=== PATIENT | male | born 1990 | race Hispanic/Latino ===

== ENCOUNTER 2018-11-08 16:23 | Inpatient (IN) | payer SELFPAY ==
[~2018-11-08 16:23] MED LIST: Heparin 10,000 UNITS/ 10 ML VIAL ONE
[2018-11-08 17:03] LABS: #Basophils 0.1 thou/uL (0.0-0.2); #Eosinphils 0.9 thou/uL (0.0-0.7); #Lymphocytes 1.4 thou/uL (1.20-3.40); #Monocytes 1.6 thou/uL (0.11-0.59); #Neutrophils 14.4 thou/uL (1.40-6.50); %Basophils 0.4 % (0.0-1.0); %Lymphocytes 7.7 % (21.0-51.0); %Monocytes 8.8 % (0.0-10.0); %Neutrophils 78.1 % (42.0-75.0); Hemoglobin 13.2 g/dL (14.0-18.0); Mean Corpuscular HGB CONC 34.7 g/dL (32.0-36.0); Mean Corpuscular Hemoglobin 30.3 pg (27.0-31.0); Mean Corpuscular Volume 87.4 fL (78.0-98.0); Mean Platelet Volume 5.8 fL (7.4-10.4); Platelet Count 414 thou/uL (130-400); RBC Distribution Width 12.6 % (11.5-14.5); Red Blood Cell (RBC) Count 4.36 mill/uL (4.70-6.10); White Blood Cell (WBC) Count 18.4 thou/uL (4.8-10.8)
[2018-11-08] MEDS ORDERED: Ondansetron PF 4 MG/2 ML Vial ONE (17:11)
[2018-11-08] MEDS ORDERED: Adacel (T-DAP) 0.5 ML SYRINGE ONE (17:11)
[2018-11-08] MEDS ORDERED: Fentanyl 100 MCG/2 ML VIAL ONE ×2 (17:11→18:11)
[2018-11-08 17:25] LABS: ALT (SGPT) 153 U/L (8-55); AST (SGOT) 106 U/L (5-34); Albumin 2.9 g/dL (3.5-5.0); Alkaline Phosphatase 85 U/L (40-150); Bilirubin, Total 0.3 mg/dL (0.2-1.2); Calc. Creatinine Clearance 0 mL/min (70-130); Calcium 6.7 mg/dL (7.8-10.44); Chloride 97 mmol/L (98-107); Estimated GFR-MDRD 4; Globulin 2.4 g/dL (2.4-3.5); Glucose 101 mg/dL (70-105); Potassium 3.8 mmol/L (3.5-5.1); Protein, Total 5.3 g/dL (6.0-8.3); Sodium 125 mmol/L (136-145)
[2018-11-08 17:30] LABS: INR-International Normal Ratio 1.2; PTT 38.3 SEC (22.9-36.1); Prothrombin Time 15.2 SEC (12.0-14.7)
[2018-11-08 17:36] LABS: BUN (Urea Nitrogen) 144 mg/dL (8.9-20.6)
[2018-11-08 17:38] LABS: Carbon Dioxide Less than 8 mmol/L (22-29)
[2018-11-08] MEDS ORDERED: Sodium Bicarbonate 150 MEQ in Dextrose 5% in Water 1,000 ML IV SCH (18:15)
--- NOTE | 2018-11-08 18:21 | RAD ---
CHEST ONE VIEW: History: Chest pain Comparison: None. FINDINGS: Lungs are clear. No pneumothorax or effusion. Cardiac silhouette and mediastinal contours are within normal limits. IMPRESSION: No acute intrathoracic abnormality. POS: [facility]
[2018-11-08 18:54] LABS: Acetaminophen Less than 6.0 mcg/mL (10.0-30.0); Alcohol Less than 10 mg/dL (Less than 10); Salicylate Less than 8.0 mg/dL (15.0-30.0)
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
[2018-11-08] MEDS ORDERED: Ondansetron ODT 4 MG TAB SL PRN (21:54)
[2018-11-08] MEDS ORDERED: Ondansetron PF 4 MG/2 ML Vial IVP PRN (21:54)
[2018-11-08] MEDS ORDERED: Ondansetron ODT 4 MG TAB PO PRN (21:59)
[2018-11-08 22:05] LABS: ALT (SGPT) 134 U/L (8-55); AST (SGOT) 93 U/L (5-34); Albumin 2.7 g/dL (3.5-5.0); Alkaline Phosphatase 88 U/L (40-150); Bilirubin, Total 0.3 mg/dL (0.2-1.2); Calc. Creatinine Clearance 9 mL/min (70-130); Calcium 6.4 mg/dL (7.8-10.44); Chloride 98 mmol/L (98-107); Estimated GFR-MDRD 4; Globulin 2.2 g/dL (2.4-3.5); Glucose 122 mg/dL (70-105); Potassium 3.7 mmol/L (3.5-5.1); Protein, Total 4.9 g/dL (6.0-8.3); Sodium 124 mmol/L (136-145)
[2018-11-08 22:07] LABS: Carbon Dioxide Less than 8 mmol/L (22-29)
[2018-11-08] MEDS: Morphine 4 MG/ML VIAL SLOW IVP PRN (22:11)
[2018-11-08] MEDS: Sodium Bicarbonate 150 MEQ in Dextrose 5% in Water 1,000 ML IV SCH (22:12)
[2018-11-08 22:23] LABS: BUN (Urea Nitrogen) 142 mg/dL (8.9-20.6)
[2018-11-08 22:45] LABS: Bilirubin Negative (Negative); Blood, Urine Large (Negative); Clarity CLOUDY (Clear); Glucose, Urine (Dipstick) 100 mg/dL (Negative); Leukocyte Small (Negative); Nitrite Negative (Negative); Protein, Urine (Dipstick) 300 mg/dL (Neg-Trace); Specific Gravity, Urine 1.012 (1.002-1.036); Urobilinogen 0.2 mg/dL (0.2-1.0); pH, Urine 6.5 (5.0-9.0)
[2018-11-08 22:46] LABS: Bacteria/HPF None Seen HPF (None Seen); Hyaline Casts/LPF 0-3 HYALINE CAST LPF (0-3 Hyaline); Pathc Cast-AUWi Flag 0.14 (0-2.49); RBC/HPF GREATER THAN 50-TNTC HPF (0-3); Squamous Epithelial 0-3 HPF (0-3); WBC/HPF 21-50 HPF (0-3)
[2018-11-08 23:05] LABS: Creatinine, Urine 59.82 mg/dL (63-166)
[2018-11-09 01:11] LABS: Amphetamine Not Detected (NotDetected); Barbiturates Screen Not Detected (NotDetected); Benzodiazepine Screen Not Detected (NotDetected); Cocaine Metabolite Screen Not Detected (NotDetected); Medtox Control Line Valid? VALID (VALID); Medtox Reader # READER 1; Methadone Not Detected (NotDetected); Methamphetamine Not Detected (NotDetected); Opiate Screen Not Detected (NotDetected); Oxycodone Screen Not Detected (NotDetected); Phencyclidine (PCP) Not Detected (NotDetected); THC/Cannabinoid Screen Not Detected (NotDetected); Tricyclic Screen Not Detected (NotDetected)
[2018-11-09 01:13] LABS: Calc. Creatinine Clearance 9 mL/min (70-130); Calcium 6.1 mg/dL (7.8-10.44); Chloride 98 mmol/L (98-107); Estimated GFR-MDRD 4; Glucose 115 mg/dL (70-105); Potassium 3.6 mmol/L (3.5-5.1); Sodium 124 mmol/L (136-145)
[2018-11-09 01:16] LABS: Carbon Dioxide Less than 8 mmol/L (22-29)
[2018-11-09 01:24] LABS: BUN (Urea Nitrogen) 139 mg/dL (8.9-20.6)
[2018-11-09] MEDS ORDERED: Vancomycin HCl 1.25 GM in Sodium Chloride 0.9% 250 ML 250 ML IVPB SCH (01:45)
[2018-11-09] MEDS: Morphine 4 MG/ML VIAL SLOW IVP PRN ×2 (01:57→05:58)
[2018-11-09] MEDS: Piperacillin/Tazobactam 2.25 GM in Sodium Chloride 0.9% 100 ML IVPB SCH ×4 (01:57→20:12)
[2018-11-09] MEDS: Sodium Bicarbonate 150 MEQ in Dextrose 5% in Water 1,000 ML IV SCH ×4 (01:57→22:24)
[2018-11-09 04:55] LABS: Lactic Acid 0.6 mmol/L (0.5-2.2)
[2018-11-09 05:02] LABS: ALT (SGPT) 110 U/L (8-55); AST (SGOT) 72 U/L (5-34); Albumin 2.4 g/dL (3.5-5.0); Alkaline Phosphatase 65 U/L (40-150); Bilirubin, Total 0.3 mg/dL (0.2-1.2); Calc. Creatinine Clearance 9 mL/min (70-130); Chloride 98 mmol/L (98-107); Estimated GFR-MDRD 4; Globulin 1.8 g/dL (2.4-3.5); Glucose 104 mg/dL (70-105); Potassium 3.5 mmol/L (3.5-5.1); Protein, Total 4.2 g/dL (6.0-8.3); Sodium 125 mmol/L (136-145)
[2018-11-09 05:05] LABS: Calc. Creatinine Clearance 9 mL/min (70-130); Chloride 97 mmol/L (98-107); Estimated GFR-MDRD 4; Glucose 102 mg/dL (70-105); Potassium 3.5 mmol/L (3.5-5.1); Sodium 123 mmol/L (136-145)
[2018-11-09 05:13] LABS: Band 1 % (5-11); Hemoglobin 11.3 g/dL (14.0-18.0); Hypochromia SLIGHT = 6-15 cells (100X) (0-5/hpf); Lymphocytes 5 % (21-51); MDiff Complete? YES; Mean Corpuscular HGB CONC 35.4 g/dL (32.0-36.0); Mean Corpuscular Hemoglobin 30.7 pg (27.0-31.0); Mean Corpuscular Volume 86.5 fL (78.0-98.0); Mean Platelet Volume 5.7 fL (7.4-10.4); Monocytes 3 % (0-10); Neutrophil 90 % (42-75); Platelet Count 339 thou/uL (130-400); Platelet Morphology Comment Appears Adequate; RBC Distribution Width 12.2 % (11.5-14.5); Reactive Lymphocytes 1 % (0-10); Red Blood Cell (RBC) Count 3.68 mill/uL (4.70-6.10); White Blood Cell (WBC) Count 14.1 thou/uL (4.8-10.8)
[2018-11-09 05:14] LABS: BUN (Urea Nitrogen) 147 mg/dL (8.9-20.6); Calcium 5.9 mg/dL (7.8-10.44); Carbon Dioxide Less than 8 mmol/L (22-29)
[2018-11-09 05:15] LABS: Carbon Dioxide Less than 8 mmol/L (22-29)
[2018-11-09 05:18] LABS: BUN (Urea Nitrogen) 141 mg/dL (8.9-20.6)
[2018-11-09 05:27] LABS: CK (CPK) 16052 U/L (30-200)
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
[2018-11-09 09:41] LABS: Anion Gap 23 mmol/L (10-20); Calc. Creatinine Clearance 8 mL/min (70-130); Chloride 97 mmol/L (98-107); Estimated GFR-MDRD 4; Glucose 111 mg/dL (70-105); Potassium 3.3 mmol/L (3.5-5.1); Sodium 125 mmol/L (136-145)
[2018-11-09 09:52] LABS: BUN (Urea Nitrogen) 141 mg/dL (8.9-20.6)
[2018-11-09 09:54] LABS: Carbon Dioxide 8 mmol/L (22-29)
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
[2018-11-09] MEDS ORDERED: Heparin 10,000 UNITS/1 ML VIAL ONE (10:36)
[2018-11-09] MEDS ORDERED: Lidocaine 2% PF 5 ML VIAL ONE (10:36)
[2018-11-09] MEDS ORDERED: Sodium Chloride 0.9% 20 ML ONE ×2 (10:36→11:01)
[2018-11-09] MEDS ORDERED: Bupivacaine HCl 0.5%/Epinephrine 1:200,000/PF 30 ml Vial ONE (10:36)
--- NOTE | 2018-11-09 11:07 | HP ---
HISTORY OF PRESENT ILLNESS: Meliza Otero is a 27-year-old male patient from [place], apparently brought in complaining of myalgias, found to have acute renal failure. He has had bilateral antecubital IVs placed and by the time I saw him this morning, I asked that it would not be removed. He still has his right antecubital IV in place. I have been asked by Dr. Laughlin to see him regarding placement of hemodialysis catheter. Plan is to place a hemodialysis catheter and a central line. ALLERGIES: NONE. SOCIAL HISTORY: Tobacco none. Alcohol occasionally. Drug use, he reports drug use. He reports smoking something. MEDICATIONS: None routinely. REVIEW OF SYSTEMS: Noncontributory. PHYSICAL EXAMINATION: VITAL SIGNS: Weight 81 kg, temperature 97 degrees, respiratory rate 23, blood pressure 169/104. HEAD, EARS, EYES, NOSE, AND THROAT: Unremarkable. LUNGS: Clear to auscultation. CARDIAC: Regular rate and rhythm without murmur or gallop. ABDOMEN: Soft and nontender. EXTREMITIES: Edematous. Antecubital IV right, and his left AC is indicative of recent IV. ASSESSMENT AND PLAN: Acute renal failure, possibly superimposed on chronic, difficult to know without past labs. Plan placement of a dialysis catheter and a central line. Plan removal of his AC IV as soon as possible. Plan ultrasound vein mapping in both arms in case he needs more permanent dialysis access in the future. Avoid IV blood draws and IVs above his wrist. Job ID: [id number]
[2018-11-09 11:20] LABS: HBSAB Concentration 5.34 mIU/mL; HBSAg Index 0.22 S/CO (0-0.99); Hep B Surf AB Non-Reactive (NonReactive); Hep B Surf Ag Non-Reactive S/CO (NonReactive)
[2018-11-09] MEDS ORDERED: traMADol HCl 50 MG TAB PO PRN (11:33)
--- NOTE | 2018-11-09 12:54 | OP ---
DATE OF PROCEDURE: 11/09/2018 PREOPERATIVE DIAGNOSIS: Acute renal failure and need of urgent dialysis access with poor intravenous access, right antecubital intravenous in an acute renal failure patient. POSTOPERATIVE DIAGNOSIS: Acute renal failure and need of urgent dialysis access with poor intravenous access, right antecubital intravenous in an acute renal failure patient. PROCEDURE PERFORMED: Right internal jugular cuffed tunneled dialysis catheter, pre-curved AngioDynamics left internal jugular central line, ultrasound fluoroscopy used. ANESTHESIA: 0.5% Marcaine with epinephrine 30 mL mixed with 2 Xylocaine 10 mL. DESCRIPTION OF PROCEDURE: The patient was taken to the operating room, where in the supine position, neck and chest were prepared with ChloraPrep and draped in routine fashion. Local anesthetic mixture was infiltrated into the skin and subcutaneous tissue about the operative site. Using ultrasound guidance, the right and left internal jugular veins were cannulated with trocar catheters. J-wire was threaded. Trocar catheters removed. Skin was incised and enlarged sharply on both sides. Stab incision was made over the right chest. Using the tunneling device, pre-curved AngioDynamics cuffed-tunneled hemodialysis catheter tunneled between the two incisions, placed in the fabric cuff beneath the skin exit site. Catheter was secured with 2 interrupted sutures of 3-0 nylon. Sterile dressing applied. Small and medium-sized dilators were placed over the J-wire, and the internal jugular vein removed. Dilator and Peel-Away sheath were placed over the J-wire into the internal jugular vein, superior vena cava, and J-wire and dilator were removed. Catheter was placed through the Peel-Away sheath. Peel-Away sheath was removed. Platysma was approximated with 4-0 Monocryl, skin with subdermal 4-0 Monocryl, and Pinhook glue applied. Both ports aspirated and blood flushed with saline solution and heparinized saline solution, 1000 units of heparin per mL indicating volume of the port. Using Seldinger technique, a left IJ triple-lumen catheter was placed and secured with 3-0 nylon suture and sterile dressings applied. Each port aspirated and blood flushed with saline solution. Fluoroscopic images revealed good line placement. Job ID: [id number]
--- NOTE | 2018-11-09 13:35 | RAD ---
PORTABLE CHEST: Date: 11-09-18 Provided Clinical History: Central line placement. FINDINGS: Comparison 11-08-18. Cardiac and mediastinal silhouette is unchanged in appearance. Interval placement of right IJ dialysi s and left IJ central venous catheters with tips overlying the expected location of the right atrium. No pleural fluid or pneumothorax apparent. No definite focal consolidation. IMPRESSION: Interval placement of central line without evidence for complication. POS: [facility]
[2018-11-09 13:36] LABS: Anion Gap 23 mmol/L (10-20); Calc. Creatinine Clearance 8 mL/min (70-130); Calcium 6.2 mg/dL (7.8-10.44); Chloride 96 mmol/L (98-107); Estimated GFR-MDRD 4; Glucose 107 mg/dL (70-105); Potassium 3.4 mmol/L (3.5-5.1); Sodium 124 mmol/L (136-145)
[2018-11-09 13:47] LABS: BUN (Urea Nitrogen) 147 mg/dL (8.9-20.6)
[2018-11-09 14:04] LABS: Carbon Dioxide 8 mmol/L (22-29)
[2018-11-09] MEDS ORDERED: Heparin 10,000 UNITS/ 10 ML VIAL ONE (15:00)
[2018-11-09] MEDS ORDERED: HYDROcodone/Acetaminophen 5/325 mg Tablet PO PRN (16:46)
[2018-11-09 18:11] LABS: Anion Gap 21 mmol/L (10-20); Calc. Creatinine Clearance 10 mL/min (70-130); Carbon Dioxide 14 mmol/L (22-29); Chloride 97 mmol/L (98-107); Estimated GFR-MDRD 5; Glucose 158 mg/dL (70-105); Sodium 129 mmol/L (136-145)
[2018-11-09 18:28] LABS: BUN (Urea Nitrogen) 120 mg/dL (8.9-20.6)
--- NOTE | 2018-11-09 18:34 | ULT ---
BILATERAL UPPER EXTREMITY VEIN MAPPING: HISTORY: End-stage renal disease. Evaluation for dialysis access. FINDINGS: RIGHT CEPHALIC BASILIC PROXIMAL HUMERUS 4.5 mm 5.1 mm MID 5.8 mm 5.9 mm DISTAL 4.5 mm 7.5 mm ELBOW 6.4 mm 5.7 mm PROXIMAL FOREARM 4.7 mm 2.5 mm MID 4.5 mm 2.4 mm DISTAL 4.6 mm 2.1 mm LEFT PROXIMAL HUMERUS 4.8 mm 5.7 mm MID 4.3 mm 5.6 mm DISTAL 4.8 mm 4.3 mm ELBOW 4.7 mm 5.6 mm PROXIMAL FOREARM 3.5 mm 3.8 mm MID 3.0 mm 2.0 mm DISTAL 2.7 mm 1.5 mm RIGHT BRACHIAL ARTERY: 5.4 mm RIGHT RADIAL ARTERY: 2.5 mm RIGHT ULNAR ARTERY: 3.8 mm LEFT BRACHIAL ARTERY: 5.7 mm LEFT RADIAL ARTERY: 2.2 mm LEFT ULNAR ARTERY: 2.8 mm IMPRESSION: Vein mapping as discussed above. POS: [facility]
[2018-11-09] MEDS ORDERED: Potassium Chloride 20 MEQ TAB PO SCH (19:45)
[2018-11-09 21:40] LABS: Anion Gap 19 mmol/L (10-20); Calc. Creatinine Clearance 10 mL/min (70-130); Carbon Dioxide 14 mmol/L (22-29); Chloride 96 mmol/L (98-107); Estimated GFR-MDRD 5; Glucose 143 mg/dL (70-105)
[2018-11-09 21:53] LABS: Sodium 126 mmol/L (136-145)
[2018-11-09 21:55] LABS: BUN (Urea Nitrogen) 122 mg/dL (8.9-20.6)
[2018-11-09 21:56] LABS: Potassium 2.9 mmol/L (3.5-5.1)
[2018-11-09] MEDS: Acetaminophen 500 MG TAB PO PRN (22:33)
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
[2018-11-10] MEDS ORDERED: Vancomycin HCl 1.25 GM in Sodium Chloride 0.9% 250 ML 250 ML IVPB SCH (02:00)
[2018-11-10] MEDS ORDERED: Vancomycin HCl 500 MG in Sodium Chloride 0.9% 100 ML IVPB SCH (02:00)
[2018-11-10] MEDS ORDERED: HOLD VANCOMYCIN FOR LEVEL >20 FS SCH (02:00)
[2018-11-10] MEDS ORDERED: Vancomycin HCl 750 MG in Sodium Chloride 0.9% 250 ML 250 ML IVPB SCH (02:00)
[2018-11-10] MEDS ORDERED: Vancomycin Sliding Scale 1 EACH FS ONE (02:00)
[2018-11-10] MEDS ORDERED: Vancomycin HCl 1 GM in Premix Bag 1 BAG IVPB SCH (02:00)
[2018-11-10] MEDS: Piperacillin/Tazobactam 2.25 GM in Sodium Chloride 0.9% 100 ML IVPB SCH ×4 (02:15→19:48)
[2018-11-10] MEDS: Sodium Bicarbonate 150 MEQ in Dextrose 5% in Water 1,000 ML IV SCH ×2 (06:29→14:03)
[2018-11-10 07:10] LABS: #Eosinphils 0.1 thou/uL (0.0-0.7); #Lymphocytes 0.9 thou/uL (1.20-3.40); #Monocytes 1.2 thou/uL (0.11-0.59); %Basophils 0.3 % (0.0-1.0); %Eosinophils 1.4 % (0.0-10.0); %Lymphocytes 9.6 % (21.0-51.0); %Monocytes 13.2 % (0.0-10.0); %Neutrophils 75.5 % (42.0-75.0); Hemoglobin 9.6 g/dL (14.0-18.0); Mean Corpuscular HGB CONC 35.3 g/dL (32.0-36.0); Mean Corpuscular Hemoglobin 30.9 pg (27.0-31.0); Mean Corpuscular Volume 87.5 fL (78.0-98.0); Mean Platelet Volume 5.9 fL (7.4-10.4); Platelet Count 357 thou/uL (130-400); RBC Distribution Width 12.2 % (11.5-14.5); Red Blood Cell (RBC) Count 3.12 mill/uL (4.70-6.10); White Blood Cell (WBC) Count 9.3 thou/uL (4.8-10.8)
[2018-11-10 07:51] LABS: ALT (SGPT) 82 U/L (8-55); AST (SGOT) 49 U/L (5-34); Albumin 2.3 g/dL (3.5-5.0); Alkaline Phosphatase 58 U/L (40-150); Anion Gap 20 mmol/L (10-20); Bilirubin, Total 0.3 mg/dL (0.2-1.2); Calc. Creatinine Clearance 10 mL/min (70-130); Carbon Dioxide 16 mmol/L (22-29); Chloride 95 mmol/L (98-107); Estimated GFR-MDRD 5; Globulin 1.8 g/dL (2.4-3.5); Glucose 118 mg/dL (70-105); Protein, Total 4.1 g/dL (6.0-8.3); Sodium 128 mmol/L (136-145)
[2018-11-10 08:02] LABS: BUN (Urea Nitrogen) 117 mg/dL (8.9-20.6)
[2018-11-10 09:16] LABS: RBC/HPF 21-50 HPF (0-3)
[2018-11-10 09:17] LABS: Bacteria/HPF None Seen HPF (None Seen); Hyaline Casts/LPF NONE SEEN LPF (0-3 Hyaline); Squamous Epithelial 0-3 HPF (0-3)
[2018-11-10] MEDS: traMADol HCl 50 MG TAB PO PRN ×2 (09:48→18:34)
[2018-11-10 10:16] LABS: HIV (1/2) Antibody/Antigen Non-Reactive (NonReactive); HIV 1/2 INDEX 0.05 S/CO (<1.00)
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
[2018-11-10 11:27] LABS: Phosphorus 6.1 mg/dL (2.3-4.7)
[2018-11-10 11:51] LABS: HBSAg Index 0.23 S/CO (0-0.99); Hep B Surf Ag Non-Reactive S/CO (NonReactive); Hep C IgG Ab Non-Reactive (NonReactive); Hep C Index 0.01 S/CO (0-0.79)
--- NOTE | 2018-11-10 13:07 | PDOC.FM ---
- Subjective Subjective: Complaining of a headache this morning, nausea, and a sore throat. - Objective MAR Reviewed: Yes Vital Signs & Weight: Vital Signs (12 hours) Temp Pulse Ox 11/10/18 11:11 98.1 F 11/10/18 08:00 100 11/10/18 07:10 98.2 F 11/10/18 04:00 98.4 F Weight Admit Weight 81.284 kg Weight 81.284 kg Most Recent Monitor Data Heart Rate from ECG 94 NIBP 142/97 NIBP BP-Mean 112 Respiration from ECG 17 SpO2 97 I&O: 11/09/18 11/10/18 11/11/18 06:59 06:59 06:59 Intake Total 1762 2711 Output Total 150 1610 Balance 1612 1101 Result Diagrams: 11/10/18 04:30 11/10/18 04:30 Phys Exam - Physical Examination Constitutional: NAD Respiratory: no wheezing, no rales, clear to auscultation bilateral tachycardic Gastrointestinal: soft, non-tender, no distention Musculoskeletal: no edema, pulses present Neurological: non-focal, normal sensation Psychiatric: normal affect, A&O x 3 Skin: no rash Dx/Plan (1) Acute renal failure (ARF) Status: Acute (2) AMAYA (acute kidney injury) Code(s): N17.9 - ACUTE KIDNEY FAILURE, UNSPECIFIED Status: Acute (3) Metabolic acidosis, increased anion gap Code(s): E87.2 - ACIDOSIS Status: Acute (4) Hyponatremia Code(s): E87.1 - HYPO-OSMOLALITY AND HYPONATREMIA Status: Acute (5) Rhabdomyolysis Code(s): M62.82 - RHABDOMYOLYSIS Status: Acute (6) Transaminitis Code(s): R74.0 - NONSPEC ELEV OF LEVELS OF TRANSAMNS & LACTIC ACID DEHYDRGNSE Status: Acute (7) Elevated TSH Code(s): R79.89 - OTHER SPECIFIED ABNORMAL FINDINGS OF BLOOD CHEMISTRY Status : Acute (8) Elevated brain natriuretic peptide (BNP) level Code(s): R79.89 - OTHER SPECIFIED ABNORMAL FINDINGS OF BLOOD CHEMISTRY Status : Acute (9) Elevated lipase Code(s): R74.8 - ABNORMAL LEVELS OF OTHER SERUM ENZYMES Status: Acute - Plan Plan: ARF/AMAYA stage 3 - GFR 5 - Bun/Cr on admission ~9.5 - FeNa 15% - [id number] 150 ml/hr - daily CMP, will check mg and phosph as well - Nephrology consulted, appreciate recs, planning for dialysis again today - avoid nephrotoxic meds - Considering intrinsic pathology such as ATN, glomerularnephritis, AIN vs prerenal etiology -->Hep B, C, HIV, P-ANCA, KALPANA pending - Considering drug induced nephropathy as pt reports sniffing paint thinner ( tenaco) daily; spoke with poison control who stated that inhaled substances such as this are not well absorbed and likely wouldn't be causing his renal failure, however he is at risk for ventricular tachycardia - proximal right ureter: moderately obstructing stone, urology consulted. Plan for NPO tonight with stent placement tomorrow followed by ureteroscopy and lithotrypsy, although does not seem to be the leading cause of patient's acute renal failure. -Urology desires to continue abx-vanc, [place] [address] [place], downtrended to 16,052--> 9764 - diffuse muscle pain on admission - continue IVF resuscitation AG Metabolic acidosis - Uremia/Rhabdo - AG 20 - see treatment as above Transaminitis - Aware, likely 2/2 poor perfusion/reactive - monitor elevated TSH - free T4 low normal hyponatremia - likely 2/2 acute renal failure/AMAYA Elevated BNP - 631 on admission, 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 - monitor fluid status closely - avoid lasix 2/2 above - Echo showed 55-60% EF with mild MR, mild TR elevated lipase - likely 2/2 to poor perfusion/reactive - no indication of pancreatitis MRSE- -1/2 blood cx elevated PT/PTT - platelets wnl, monitor for DIC - no anticoag ppx for DVT code: full ppx: [facility] dispo: pt admitted to IM, dialysis today, aggressive IVF resuscitation Addendum - Attending - Attending Attestation Date/Time: 11/10/18 5375 I personally evaluated the patient and discussed the management with Dr. Ramírez. I agree with and repeated the History, Examination, Assessment and Plan documented above with any addition or exceptions noted below. Appreciate uro/nephrology recs. Dialysis again today.
[2018-11-10 13:33] LABS: Magnesium 1.6 mg/dL (1.6-2.6); Phosphorus 6.2 mg/dL (2.3-4.7)
[2018-11-10] MEDS: Ondansetron PF 4 MG/2 ML Vial IVP PRN (19:41)
[2018-11-10] MEDS: chlorproMAZINE HCl 50 MG/2 ML AMP IM PRN (19:43)
[2018-11-11] MEDS: Sodium Bicarbonate 150 MEQ in Dextrose 5% in Water 1,000 ML IV SCH ×4 (02:06→21:19)
[2018-11-11] MEDS: Piperacillin/Tazobactam 2.25 GM in Sodium Chloride 0.9% 100 ML IVPB SCH ×4 (02:07→19:44)
[2018-11-11 05:43] LABS: #Eosinphils 0.2 thou/uL (0.0-0.7); #Lymphocytes 1.2 thou/uL (1.20-3.40); #Neutrophils 6.8 thou/uL (1.40-6.50); %Basophils 0.1 % (0.0-1.0); %Eosinophils 1.9 % (0.0-10.0); %Lymphocytes 12.8 % (21.0-51.0); %Monocytes 11.1 % (0.0-10.0); %Neutrophils 74.1 % (42.0-75.0); Hemoglobin 9.6 g/dL (14.0-18.0); Mean Corpuscular HGB CONC 34.8 g/dL (32.0-36.0); Mean Corpuscular Hemoglobin 30.2 pg (27.0-31.0); Mean Corpuscular Volume 86.7 fL (78.0-98.0); Mean Platelet Volume 5.4 fL (7.4-10.4); Platelet Count 394 thou/uL (130-400); Red Blood Cell (RBC) Count 3.18 mill/uL (4.70-6.10); White Blood Cell (WBC) Count 9.1 thou/uL (4.8-10.8)
--- NOTE | 2018-11-11 05:50 | PDOC.FM ---
- Subjective Subjective: No acute events overnight. A&O x 3 this am. Conversing in mauritian this morning. Denies nausea. Endorses diffuse abdominal tenderness. - Objective MAR Reviewed: Yes Vital Signs & Weight: Vital Signs (12 hours) Temp Pulse Ox 11/11/18 04:00 99.0 F 11/11/18 00:00 99.2 F 11/10/18 20:39 100 11/10/18 20:00 98.4 F Weight Admit Weight 81.284 kg Weight 81.284 kg Most Recent Monitor Data Heart Rate from ECG 108 NIBP 138/76 NIBP BP-Mean 96 Respiration from ECG 8 SpO2 94 I&O: 11/09/18 11/10/18 11/11/18 06:59 06:59 06:59 Intake Total 1762 2711 2000 Output Total 150 1610 1750 Balance 1612 1101 250 Result Diagrams: 11/11/18 05:05 11/11/18 05:05 Phys Exam - Physical Examination Constitutional: NAD HEENT: PERRLA, moist MMs Respiratory: no wheezing, no rales, clear to auscultation bilateral Cardiovascular: no significant murmur mild tachycardia Gastrointestinal: soft, non-tender, no distention Musculoskeletal: pulses present scrotal edema Neurological: non-focal Psychiatric: normal affect, A&O x 3 Skin: no rash Dx/Plan (1) Acute renal failure (ARF) Status: Acute (2) AMAYA (acute kidney injury) Code(s): N17.9 - ACUTE KIDNEY FAILURE, UNSPECIFIED Status: Acute (3) Metabolic acidosis, increased anion gap Code(s): E87.2 - ACIDOSIS Status: Acute (4) Hyponatremia Code(s): E87.1 - HYPO-OSMOLALITY AND HYPONATREMIA Status: Acute (5) Rhabdomyolysis Code(s): M62.82 - RHABDOMYOLYSIS Status: Acute (6) Transaminitis Code(s): R74.0 - NONSPEC ELEV OF LEVELS OF TRANSAMNS & LACTIC ACID DEHYDRGNSE Status: Acute (7) Elevated TSH Code(s): R79.89 - OTHER SPECIFIED ABNORMAL FINDINGS OF BLOOD CHEMISTRY Status : Acute (8) Elevated brain natriuretic peptide (BNP) level Code(s): R79.89 - OTHER SPECIFIED ABNORMAL FINDINGS OF BLOOD CHEMISTRY Status : Acute (9) Elevated lipase Code(s): R74.8 - ABNORMAL LEVELS OF OTHER SERUM ENZYMES Status: Acute - Plan Plan: ARF/AMAYA stage 3 - GFR 5 - Bun/Cr on admission ~9.5 - FeNa 15% - [id number] 150 ml/hr - daily dialysis - daily CMP - Mg and phosph wnl - Nephrology consulted, appreciate recs - Avoid nephrotoxic meds - Considering intrinsic pathology such as ATN, glomerularnephritis, AIN -->Hep B, C, HIV negative -->, P-ANCA, KALPANA pending - Considering drug induced nephropathy as pt reports sniffing paint thinner ( tenaco) daily; spoke with poison control who stated that inhaled substances such as this are not well absorbed and likely wouldn't be causing his renal failure, however he is at risk for ventricular tachycardia - proximal right ureter: moderately obstructing stone, urology consulted. Plan stent placement followed by ureteroscopy and lithotrypsy, although does not seem to be the leading cause of patient's acute renal failure. 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 Ramírez. I agree with and repeated the History, Examination, Assessment and Plan documented above with any addition or exceptions noted below. Patient s/p surgery and doing well. No pain currently. Replete and recheck Baudilio Continue dialysis. PTH supports AMAYA on CKD. Rhabdo improving.
[2018-11-11 06:05] LABS: ALT (SGPT) 58 U/L (8-55); AST (SGOT) 36 U/L (5-34); Albumin 2.2 g/dL (3.5-5.0); Alkaline Phosphatase 44 U/L (40-150); Anion Gap 17 mmol/L (10-20); BUN (Urea Nitrogen) 84 mg/dL (8.9-20.6); Bilirubin, Total 0.3 mg/dL (0.2-1.2); Calc. Creatinine Clearance 13 mL/min (70-130); Calcium 6.2 mg/dL (7.8-10.44); Carbon Dioxide 26 mmol/L (22-29); Chloride 93 mmol/L (98-107); Estimated GFR-MDRD 6; Globulin 1.7 g/dL (2.4-3.5); Glucose 111 mg/dL (70-105); Protein, Total 3.9 g/dL (6.0-8.3); Sodium 133 mmol/L (136-145)
[2018-11-11 06:08] LABS: Potassium 2.8 mmol/L (3.5-5.1)
[2018-11-11] MEDS ORDERED: Potassium Chloride 40 MEQ in Premix Bag 1 BAG IVPB SCH (06:15)
[2018-11-11 06:20] LABS: CK (CPK) 4991 U/L (30-200)
[2018-11-11] MEDS: Acetaminophen 500 MG TAB PO PRN ×2 (06:29→19:44)
[2018-11-11 06:30] LABS: Vancomycin, Random 11.2 ug/mL (See Comment)
[2018-11-11] MEDS ORDERED: Iothalamate Meglumine 60% 50 ML VIAL FS ONE (09:25)
[2018-11-11] MEDS ORDERED: Lidocaine 2% Jelly 5 ML TUBE ONE (09:59)
[2018-11-11] MEDS ORDERED: traMADol HCl 50 MG TAB PO PRN (10:15)
--- NOTE | 2018-11-11 10:27 | RAD ---
LEFT RETROGRADE UROGRAM: DATE: 11/11/2018. HISTORY: Left hydronephrosis and obstructing left ureteral calculus noted on recent CT exam. FINDINGS: Single provided fluoroscopic image demonstrates surgical instruments overlying the urinary bladder wi th a right ureteral stent in place with proximal portion overlying the superior pole left renal colle cting system with distal portion overlying the urinary bladder. There is evidence of mild left hydro nephrosis. Calculus within the proximal left ureter near the left UPJ seen on the CT scan on 11/08/19 19 is not well visualized on this exam. Correlation with intraoperative findings is recommended POS: SERGIO
[2018-11-11] MEDS: Potassium Chloride 20 MEQ in Premix Bag 1 BAG IVPB SCH ×2 (10:58→11:59)
[2018-11-11] MEDS ORDERED: Heparin 1,000 UNITS/ML VIAL ONE (11:11)
[2018-11-11] MEDS ORDERED: Potassium Chloride 20 MEQ in Premix Bag 1 BAG IVPB SCH (12:00)
--- NOTE | 2018-11-11 12:32 | OP ---
DATE OF PROCEDURE: 11/11/2018 PREOPERATIVE DIAGNOSES: 1. A 27-year-old male with acute renal failure. 2. Left proximal ureteral stone measuring 0.9 x 0.5 x 1 cm at the level of L3, left lower pole 4-mm nonobstructing stone. 3. Right kidney without evidence of hydronephrosis or renal ureteral calculi. POSTOPERATIVE DIAGNOSES: 1. A 27-year-old male with acute renal failure. 2. Left proximal ureteral stone measuring 0.9 x 0.5 x 1 cm at the level of L3, left lower pole 4-mm nonobstructing stone. 3. Right kidney without evidence of hydronephrosis or renal ureteral calculi. PROCEDURES: Cystoscopy, left retrograde, a 6 x 26 double-J ureteral stent. ANESTHESIA: TIVA. COMPLICATIONS: None. DISPOSITION: To recovery room in guarded condition. INDICATIONS FOR PROCEDURE AND HISTORY: Mr. Otero is a 27-year-old male admitted for acute renal failure. He has received dialysis. CT of the abdomen, pelvis, and chest without contrast was obtained on admission. This demonstrated a large left proximal ureteral stone with left hydronephrosis. Right kidney unremarkable. The patient/family were consulted regarding options of ureteral stent versus observation. They have been fully informed regarding multifactorial etiology of his acute renal failure and desired to proceed with ureteral stent. I did discuss with them regarding options of ureteroscopy, laser lithotripsy as his UA demonstrates no bacteria. However, given frail nature, uremic state, anesthesia did have concerns regarding general anesthesia. Therefore, we elected just to put a stent in and the patient has been cleared by Anesthesia to proceed with TIVA anesthesia. Family informed. We also discussed options of observation, which they desired trial of ureteral stents. Risks and complications including, but not limited to, bleeding, pain, infection, injury to adjacent organs, urosepsis, persistent renal failure, and injury to adjacent organs were reviewed. The patient and family were fully informed regarding implications of foreign body, i.e., ureteral stent requiring staged intervention. Risks of noncompliance with indwelling ureteral stent resulting in persistent renal failure, sepsis, incrustation further stone nidus was reviewed. They desired to proceed without reservation. DESCRIPTION OF PROCEDURE: After an informed consent was signed, the patient was taken to the operating room, placed in a dorsal lithotomy position with the genital area prepped and draped in the usual surgical sterile fashion. The patient has been receiving broad-spectrum antibiotics in-house with vancomycin and Zosyn. The patient was taken to the operating room. Bilateral JORGE hose and SCDs were in place and TIVA anesthesia was administered. Viscous lidocaine was placed per urethra. A 21-American cystoscope was utilized for cystoscopy, which demonstrated normal anterior and posterior urethra. The UOs are in normal orthotopic position. A left retrograde pyelogram was performed with a 5-American open-ended catheter with 1:1 diluted contrast demonstrating a subtle filling defect in the proximal ureter with proximal hydronephrosis. A 0.35 Sensor wire was able to be passed without difficulty and a 6 x 26 double-J ureteral stent was passed without significant issues. A 16-American Shea catheter was replaced to gravity demonstrating red- tinged urine. The patient was transported to the recovery room in stable condition and we will continue medical optimization. If the patient has improvement of his clinical parameters, discussed with the patient regarding possible ureteroscopy at a later date on this admission versus as an outpatient. Job ID: [id number] [facility]
[2018-11-11] MEDS ORDERED: PROPOFOL 200 MG/20 ML VIAL ONE (13:31)
[2018-11-11 14:00] LABS: Anion Gap 17 mmol/L (10-20); BUN (Urea Nitrogen) 83 mg/dL (8.9-20.6); Calc. Creatinine Clearance 13 mL/min (70-130); Calcium 6.3 mg/dL (7.8-10.44); Carbon Dioxide 26 mmol/L (22-29); Chloride 91 mmol/L (98-107); Estimated GFR-MDRD 6; Glucose 192 mg/dL (70-105); Sodium 131 mmol/L (136-145)
[2018-11-11 14:04] LABS: Potassium 2.9 mmol/L (3.5-5.1)
--- NOTE | 2018-11-11 18:14 | PRG ---
DATE OF SERVICE: 11/11/2018 SUBJECTIVE: Mr. Otero is a 27-year-old male, was admitted for acute kidney injury. The exact etiology of his renal dysfunction remains unclear. He also was found to have left renal obstruction. He underwent cystoscopy and ureteral stent placement. He also underwent hemodialysis today. The patient is improving with regard to his mentation. No complaints of chest pain or shortness of breath. OBJECTIVE: VITAL SIGNS: Blood pressure is 149/97, heart rate 102, respiratory rate 13, pulse ox 97%. GENERAL: Noted to be awake, alert, comfortable, not in distress. SKIN: Adequate turgor. HEENT: He has slightly pale conjunctivae. Anicteric sclerae. No neck mass. No carotid bruits. No JVD. CHEST: No deformities. LUNGS: Clear breath sounds. HEART: Normal sinus rhythm. No murmur. No gallops. No rubs. ABDOMEN: Globular, soft, nontender. No masses. EXTREMITIES: No deformities. MEDICATIONS: Medications of November 11, 2018, were reviewed. LABORATORY DATA: Laboratories of November 11, 2018: Sodium 131, potassium 2.9, chloride 91, carbon dioxide 26, BUN 83, creatinine 9.86, calcium 6.3. PTH is 222. Hepatitis B and C are nonreactive. HIV is negative. KALPANA and ANCA are pending. ASSESSMENT AND PLAN: 1. Acute kidney injury. Unclear etiology. The possibility of underlying chronic GN remains with this patient. Another close differential is myoglobinuric ATN from possible rhabdomyolysis. For the moment, continue current hemodialysis regimen. We will schedule him for another dialytic intervention. Clinically, the patient is much improved. He is less uremic. He is mentating and talking and more alert today. 2. Left hydronephrosis - Urology is following, status post ureteral stent placement. 3. Hypokalemia, p.r.n. potassium replacement. Overall agree with current management. Job ID: [id number]
[2018-11-11 20:15] LABS: Potassium 3.1 mmol/L (3.5-5.1)
[2018-11-11] MEDS ORDERED: Potassium Chloride 20 MEQ TAB PO SCH (23:45)
[2018-11-12] MEDS: Piperacillin/Tazobactam 2.25 GM in Sodium Chloride 0.9% 100 ML IVPB SCH ×3 (03:03→20:21)
[2018-11-12 04:26] LABS: #Eosinphils 0.1 thou/uL (0.0-0.7); #Lymphocytes 1.3 thou/uL (1.20-3.40); #Monocytes 1.1 thou/uL (0.11-0.59); #Neutrophils 7.3 thou/uL (1.40-6.50); %Basophils 0.4 % (0.0-1.0); %Eosinophils 1.2 % (0.0-10.0); %Lymphocytes 12.7 % (21.0-51.0); %Monocytes 11.3 % (0.0-10.0); %Neutrophils 74.4 % (42.0-75.0); Hemoglobin 9.6 g/dL (14.0-18.0); Mean Corpuscular HGB CONC 34.6 g/dL (32.0-36.0); Mean Corpuscular Hemoglobin 30.7 pg (27.0-31.0); Mean Corpuscular Volume 88.9 fL (78.0-98.0); Mean Platelet Volume 5.4 fL (7.4-10.4); Platelet Count 377 thou/uL (130-400); RBC Distribution Width 12.3 % (11.5-14.5); Red Blood Cell (RBC) Count 3.13 mill/uL (4.70-6.10); White Blood Cell (WBC) Count 9.8 thou/uL (4.8-10.8)
[2018-11-12 04:44] LABS: ALT (SGPT) 60 U/L (8-55); AST (SGOT) 47 U/L (5-34); Albumin 2.3 g/dL (3.5-5.0); Alkaline Phosphatase 77 U/L (40-150); Anion Gap 16 mmol/L (10-20); BUN (Urea Nitrogen) 52 mg/dL (8.9-20.6); Bilirubin, Total 0.2 mg/dL (0.2-1.2); CK (CPK) 3430 U/L (30-200); Calc. Creatinine Clearance 18 mL/min (70-130); Calcium 6.4 mg/dL (7.8-10.44); Carbon Dioxide 29 mmol/L (22-29); Chloride 97 mmol/L (98-107); Estimated GFR-MDRD 9; Globulin 1.9 g/dL (2.4-3.5); Glucose 129 mg/dL (70-105); Potassium 3.1 mmol/L (3.5-5.1); Protein, Total 4.2 g/dL (6.0-8.3); Sodium 139 mmol/L (136-145)
[2018-11-12] MEDS: Sodium Bicarbonate 150 MEQ in Dextrose 5% in Water 1,000 ML IV SCH ×3 (05:40→17:20)
[2018-11-12] MEDS ORDERED: Potassium Chloride 20 MEQ in Premix Bag 1 BAG IVPB SCH ×4 (06:45→09:00)
--- NOTE | 2018-11-12 06:46 | PDOC.FM ---
- Subjective Subjective: No acute events overnight. Complained of a headache and nausea this morning. - Objective MAR Reviewed: Yes Vital Signs & Weight: Vital Signs (12 hours) Temp 11/12/18 04:00 99.2 F 11/12/18 00:30 99.4 F 11/11/18 19:44 99.2 F Weight Admit Weight 81.284 kg Weight 81.284 kg Most Recent Monitor Data Heart Rate from ECG 92 NIBP 149/103 NIBP BP-Mean 118 Respiration from ECG 11 SpO2 97 I&O: 11/10/18 11/11/18 11/12/18 06:59 06:59 06:59 Intake Total 2711 3100 4580 Output Total 1610 2650 4400 Balance 1101 450 180 Result Diagrams: 11/12/18 04:15 11/12/18 04:15 Phys Exam - Physical Examination Constitutional: NAD Respiratory: no wheezing, no rales, clear to auscultation bilateral Cardiovascular: RRR, no significant murmur Gastrointestinal: soft mild distention, tender in the midepigasric region and ruq region, hypoacti bowel sounds Neurological: non-focal Psychiatric: normal affect, A&O x 3 Skin: no rash, cap refill <2 seconds Dx/Plan (1) Acute renal failure (ARF) Status: Acute (2) AMAYA (acute kidney injury) Code(s): N17.9 - ACUTE KIDNEY FAILURE, UNSPECIFIED Status: Acute (3) Metabolic acidosis, increased anion gap Code(s): E87.2 - ACIDOSIS Status: Acute (4) Hyponatremia Code(s): E87.1 - HYPO-OSMOLALITY AND HYPONATREMIA Status: Acute (5) Rhabdomyolysis Code(s): M62.82 - RHABDOMYOLYSIS Status: Acute (6) Transaminitis Code(s): R74.0 - NONSPEC ELEV OF LEVELS OF TRANSAMNS & LACTIC ACID DEHYDRGNSE Status: Acute (7) Elevated TSH Code(s): R79.89 - OTHER SPECIFIED ABNORMAL FINDINGS OF BLOOD CHEMISTRY Status : Acute (8) Elevated brain natriuretic peptide (BNP) level Code(s): R79.89 - OTHER SPECIFIED ABNORMAL FINDINGS OF BLOOD CHEMISTRY Status : Acute (9) Elevated lipase Code(s): R74.8 - ABNORMAL LEVELS OF OTHER SERUM ENZYMES Status: Acute - Plan Plan: 27 yo gentleman who presented with diffuse pain admitted for AMAYA/ARF, rhabdo, hyponatremia, and transaminitis. Hosp day: 4, ICU day: 4 AMAYA on CKD -DDX: GN vs ATN from rhabdo -->Hep B, C, HIV negative -->, P-ANCA, KALPANA pending - GFR 9 - Bun/Cr on admission ~9.5 - FeNa on admission 15% - Continue [id number] 150 ml/hr - daily dialysis - daily CMP with mag and phosph - Nephrology consulted, appreciate recs - Avoid nephrotoxic meds , dose abx accordingly - Considered drug induced nephropathy as pt reports sniffing paint thinner ( tenaco) daily; spoke with poison control who stated that inhaled substances such as this are not well absorbed and likely wouldn't be causing his renal failure, however he is at risk for ventricular tachycardia Abdominal distention with nausea- -Pt is on norco, tram for pain -ordered kub -will also try a GI cocktail Left ureteral stone- -moderately obstructing -Urology on board, appreciate recommendations -pt s/p stent placed in left ureter -continue vanc (11/09) and zosyn (11/09) [place] [address] [place], downtrended to 16,052--> 9764-->33972-->3430 - diffuse muscle pain on admission - continue IVF resuscitation Transaminitis - Aware, slightly worse from yesterday - AST: ALT 47, 60 - allk phosph wnl, t bili wnl elevated TSH -free T4 low normal -repeat TSH outpatient 6 weeks Elevated BNP - 631 on admission, 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 - monitor fluid status closely - avoid lasix 2/2 above - Echo showed 55-60% EF with mild MR, mild TR elevated lipase - likely 2/2 to poor perfusion/reactive - no indication of pancreatitis MRSE- -1/2 blood cx elevated PT/PTT - platelets wnl, monitor for DIC - no anticoag ppx for DVT AG Metabolic acidosis, resolved hyponatremia, resolved lines: left IJ dialysis cath, right IJ CVC both placed 11/09 code: full ppx: mech, consider heparin dispo: pt admitted to [facility], dialysis today, aggressive IVF resuscitation Addendum - Attending - Attending Attestation Date/Time: 11/12/18 1055 I personally evaluated the patient and discussed the management with Dr. Ramírez. I agree with and repeated the History, Examination, Assessment and Plan documented above with any addition or exceptions noted below.
--- NOTE | 2018-11-12 08:35 | PRG ---
DATE OF SERVICE: 11/12/2018 SUBJECTIVE: The patient resting comfortably, family at bedside. OBJECTIVE: VITAL SIGNS: Stable. He is afebrile. I's and O's 1000 of urine output, red tinged hematuria. ABDOMEN: Soft, nontender, nondistended. : Shea catheter adequately secured, stable hydrocele, left greater than right. PERTINENT LABORATORY DATA: White count 9, hemoglobin 9.6, platelets 377. BUN 52, creatinine 7.19. CPK on admission 27,493, this morning it is 3430. Urine culture preliminary negative. Hepatitis HIV panel was negative. IMPRESSION AND PLAN: Mr. Otero is a 27-year-old male, admitted for acute renal failure on hemodialysis. 1. History of polysubstance abuse. 2. History of left hydronephrosis with 1 cm proximal ureteral stone, postop day #1, status post cysto, left retrograde stent. Continue medical management and optimization. will follow, monitor for renal function recovery. Do not remove Shea unless is okay with Job ID: [id number] MTDD
[2018-11-12] MEDS ORDERED: Lidocaine 2% Viscous Solution 10 ML, Aluminum & Magnesium Hydroxide 30 ML SSW SCH (08:45)
[2018-11-12] MEDS ORDERED: traMADol HCl 50 MG TAB PO SCH (08:45)
--- NOTE | 2018-11-12 09:13 | RAD ---
SUPINE PORTABLE AP ABDOMINAL RADIOGRAPH: Date: 11-12-18 History: Abdominal distension, epigastric pain. Right upper quadrant pain. Comparison: IVP, 11-11-18 FINDINGS: Visualized lung bases are clear. Left ureteral stent is again noted in place and unchanged in positio n. Previously seen contrast within the left renal collecting system is not identified. Bowel gas joann jose elias is nonspecific. No suspicious calcifications are seen. Osseous structures are intact. IMPRESSION: 1. Left ureteral stent in place. 2. Nonspecific bowel gas pattern. POS: SERGIO
[2018-11-12] MEDS ORDERED: Heparin 1,000 UNITS/ML VIAL ONE (11:11)
[2018-11-12] MEDS: Acetaminophen 500 MG TAB PO PRN ×2 (12:53→20:25)
[2018-11-12 16:03] LABS: Potassium 3.5 mmol/L (3.5-5.1)
[2018-11-12 17:10] LABS: Cytoplasmic (C-ANCA) <1:20 titer (Neg:<1:20); Myeloperoxidase AutoAbs <9.0 U/mL (0.0-9.0); Perinuclear (P-ANCA) <1:20 titer (Neg:<1:20); Proteinase-3 AutoAbs Less than 3.5 U/mL (0.0-3.5)
[2018-11-12] MEDS: traMADol HCl 50 MG TAB PO PRN (23:56)
[2018-11-13] MEDS: Sodium Bicarbonate 150 MEQ in Dextrose 5% in Water 1,000 ML IV SCH ×3 (03:13→13:54)
[2018-11-13] MEDS: Piperacillin/Tazobactam 2.25 GM in Sodium Chloride 0.9% 100 ML IVPB SCH ×3 (03:32→18:19)
[2018-11-13 05:54] LABS: #Eosinphils 0.2 thou/uL (0.0-0.7); #Lymphocytes 1.1 thou/uL (1.20-3.40); #Neutrophils 8.4 thou/uL (1.40-6.50); %Basophils 0.4 % (0.0-1.0); %Eosinophils 1.8 % (0.0-10.0); %Neutrophils 78.8 % (42.0-75.0); Hemoglobin 9.8 g/dL (14.0-18.0); Mean Corpuscular HGB CONC 33.2 g/dL (32.0-36.0); Mean Corpuscular Hemoglobin 30.5 pg (27.0-31.0); Mean Corpuscular Volume 91.7 fL (78.0-98.0); Mean Platelet Volume 5.7 fL (7.4-10.4); Platelet Count 383 thou/uL (130-400); RBC Distribution Width 12.6 % (11.5-14.5); Red Blood Cell (RBC) Count 3.21 mill/uL (4.70-6.10); White Blood Cell (WBC) Count 10.6 thou/uL (4.8-10.8)
[2018-11-13 06:16] LABS: ALT (SGPT) 67 U/L (8-55); AST (SGOT) 60 U/L (5-34); Albumin 2.6 g/dL (3.5-5.0); Alkaline Phosphatase 61 U/L (40-150); Anion Gap 15 mmol/L (10-20); BUN (Urea Nitrogen) 28 mg/dL (8.9-20.6); Bilirubin, Total 0.2 mg/dL (0.2-1.2); CK (CPK) 3014 U/L (30-200); Calc. Creatinine Clearance 26 mL/min (70-130); Carbon Dioxide 32 mmol/L (22-29); Chloride 98 mmol/L (98-107); Estimated GFR-MDRD 14; Glucose 108 mg/dL (70-105); Potassium 3.4 mmol/L (3.5-5.1); Protein, Total 4.6 g/dL (6.0-8.3); Sodium 142 mmol/L (136-145)
[2018-11-13] MEDS ORDERED: Potassium Chloride 20 MEQ in Premix Bag 1 BAG IVPB SCH ×2 (06:45→07:00)
--- NOTE | 2018-11-13 06:53 | PDOC.FM ---
- Subjective Subjective: Complains of persistent nausea and diffuse abdominal tenderness. - Objective Vital Signs & Weight: Vital Signs (12 hours) Temp Pulse Resp BP BP Pulse Ox 11/13/18 04:00 98 F 88 12 159/98 H 93 L 11/12/18 21:50 98.7 F 82 16 156/98 H 95 11/12/18 19:13 98.8 F Weight Admit Weight 81.284 kg Weight 84.459 kg Most Recent Monitor Data Heart Rate from ECG 87 NIBP 157/99 NIBP BP-Mean 118 Respiration from ECG 16 SpO2 95 I&O: 11/11/18 11/12/18 11/13/18 06:59 06:59 06:59 Intake Total 3100 4580 4532 Output Total 2650 4400 4125 Balance 450 180 407 Result Diagrams: 11/13/18 04:52 11/13/18 04:52 Phys Exam - Physical Examination Constitutional: NAD HEENT: PERRLA, moist MMs Respiratory: no wheezing, no rales, clear to auscultation bilateral Cardiovascular: RRR, no significant murmur Gastrointestinal: soft, non-tender, no distention, positive bowel sounds Musculoskeletal: no edema, pulses present Neurological: non-focal, normal sensation Psychiatric: normal affect, A&O x 3 Skin: no rash, cap refill <2 seconds Dx/Plan (1) Acute renal failure (ARF) Status: Acute (2) AMAYA (acute kidney injury) Code(s): N17.9 - ACUTE KIDNEY FAILURE, UNSPECIFIED Status: Acute (3) Metabolic acidosis, increased anion gap Code(s): E87.2 - ACIDOSIS Status: Acute (4) Hyponatremia Code(s): E87.1 - HYPO-OSMOLALITY AND HYPONATREMIA Status: Acute (5) Rhabdomyolysis Code(s): M62.82 - RHABDOMYOLYSIS Status: Acute (6) Transaminitis Code(s): R74.0 - NONSPEC ELEV OF LEVELS OF TRANSAMNS & LACTIC ACID DEHYDRGNSE Status: Acute (7) Elevated TSH Code(s): R79.89 - OTHER SPECIFIED ABNORMAL FINDINGS OF BLOOD CHEMISTRY Status : Acute (8) Elevated brain natriuretic peptide (BNP) level Code(s): R79.89 - OTHER SPECIFIED ABNORMAL FINDINGS OF BLOOD CHEMISTRY Status : Acute (9) Elevated lipase Code(s): R74.8 - ABNORMAL LEVELS OF OTHER SERUM ENZYMES Status: Acute - Plan Plan: 27 yo gentleman who presented with diffuse pain admitted for AMAYA/ARF, rhabdo, hyponatremia, and transaminitis. Hosp day: 4, ICU day: 4 AMAYA on CKD -DDX: ATN from rhabdo vs GN -->Hep B, C, HIV negative -->, P-ANCA, KALPANA pending - GFR improved - Bun/Cr on admission ~9.5 - FeNa on admission 15% - DC [id number] 150 ml/hr - dialysis tomorrow - daily CMP with mag and phosph - Nephrology consulted, appreciate recs - Avoid nephrotoxic meds , dose abx accordingly - Considered drug induced nephropathy as pt reports sniffing paint thinner ( tenaco) daily; spoke with poison control who stated that inhaled substances such as this are not well absorbed and likely wouldn't be causing his renal failure, however he is at risk for ventricular tachycardia Abdominal distention with nausea- -Pt is on norco, tram for pain -ordered kub -will also try a GI cocktail -abd CT unremarkable on admission -will check an H. pylori Left ureteral stone- -moderately obstructing -Urology on board, appreciate recommendations -recommended pulling mariee today and plan for lithotrypsy on Friday next week -pt s/p stent placed in left ureter -continue vanc (11/09) and zosyn (11/09) [place] [address] on admission, downtrended to 16,052--> 9764-->50208-->3430-->3014 - diffuse muscle pain on admission - continue IVF resuscitation Transaminitis - Aware, slightly worse from yesterday - AST: ALT 47, 60 - allk phosph wnl, t bili wnl elevated TSH -free T4 low normal -repeat TSH outpatient 6 weeks Elevated BNP - 631 on admission, 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 - monitor fluid status closely - avoid lasix 2/2 above - Echo showed 55-60% EF with mild MR, mild TR elevated lipase - likely 2/2 to poor perfusion/reactive - no indication of pancreatitis MRSE- -1/2 blood cx elevated PT/PTT - platelets wnl, monitor for DIC - no anticoag ppx for DVT AG Metabolic acidosis, resolved hyponatremia, resolved lines: left IJ dialysis cath, right IJ CVC both placed 11/09 code: full ppx: mech, consider heparin dispo: pt admitted to [facility], dialysis today, aggressive IVF resuscitation Addendum - Attending - Attending Attestation Date/Time: 11/13/18 8685 I personally evaluated the patient and discussed the management with Dr. Ramírez. I agree with and repeated the History, Examination, Assessment and Plan documented above with any addition or exceptions noted below. Improving. Does not complaint of sig abd pain to me today. Needs PT/OT and changed to pharm DVT ppx.
[2018-11-13] MEDS: Heparin 5,000 UNITS/ML VIAL SC SCH ×2 (08:19→20:12)
--- NOTE | 2018-11-13 08:47 | PRG ---
DATE OF SERVICE: 11/13/18 SUBJECTIVE: The patient appears to be more alert, mother at bedside. OBJECTIVE: VITAL SIGNS: Stable. The patient currently receiving daily dialysis. I's and O's 4532 and 4100 out. Urine output per Shea 2725 of red tinged urine, in the tubing, it is alee yellow. ABDOMEN: Soft, nontender, nondistended. No significant CVA tenderness PERTINENT LABORATORY DATA: White count 10, hemoglobin 9.8, platelets 283. INR is 1.2, PTT of 38. BUN today is 28. Admitting BUN 144. Creatinine is 5.16. CK on admission 27,493, currently is 3014. Urine culture negative. Echocardiogram: Normal EF IMPRESSION AND PLAN: 1. A 27-year-old male, , admitted for acute renal failure, on daily hemodialysis. 2. History of polysubstance abuse. 3. History of left-sided hydronephrosis secondary to 1 cm proximal ureteral stone, postop day #2 status post stent, retrograde. appears to be slowly recovering, he continues to receive dialysis daily. Will discontinue Shea, he continues to have some hematuria, however, this is improved. Strict I 's and O's advised. I discussed with mother at bedside, that if he is medically optimized, would recommend ureteroscopy, laser lithotripsy on this admission. I do have concerns regarding compliance of followup as outpatient. If he is medically stable, I would like to treat his stone next week Friday scheduled for laser lithotripsy. The patient and mother were fully informed, treatment of ureteral stone may not improve his renal function as it is multifactorial. However, as he presents with large stone, and hydronephrosis, it would be prudent to treat, in hopes of improvement of medical renal disease component, so his stent could be removed in a timely manner. Mother agrees. Informed primary service regarding treatment plan per . Job ID: [id number] [facility]
[2018-11-13] MEDS: Ondansetron PF 4 MG/2 ML Vial IVP PRN (08:58)
[2018-11-13] MEDS ORDERED: Lidocaine 2% Viscous Solution 10 ML, Aluminum & Magnesium Hydroxide 30 ML SSW SCH (09:15)
[2018-11-13 10:49] LABS: Vancomycin, Random 3.7 ug/mL (See Comment)
[2018-11-13] MEDS ORDERED: Vancomycin HCl 1.25 GM in Sodium Chloride 0.9% 250 ML 250 ML IVPB SCH (12:00)
[2018-11-13] MEDS: traMADol HCl 50 MG TAB PO PRN (16:17)
[2018-11-13 16:42] LABS: ANA Symphony (Qualitative) Negative (Negative); ANA Symphony (Quantitative) Less than 0.1 Ratio (< 0.7 Negative); dsDNA IgG Antibody Less than 0.5 IU/mL (<10 Negative)
[2018-11-13] MEDS: chlorproMAZINE HCl 50 MG/2 ML AMP IM PRN (17:26)
[2018-11-13] MEDS: Lactated Ringer's 1,000 ML IV SCH (21:12)
--- NOTE | 2018-11-13 22:01 | PRG ---
DATE OF SERVICE: 11/13/2018 SUBJECTIVE: A 27-year-old male admitted with acute kidney injury associated with anuria. The patient was found to have markedly elevated CK. Mental status has improved, and the patient is making good amount of urine. He denied fever, headache, or vomiting, still admitted to some nausea. Last hemodialysis was on November 12, 2018. OBJECTIVE: VITAL SIGNS: Blood pressure 162/112, temperature 98.5, pulse 70, respiratory rate 18, and SpO2 of 95% on room air. GENERAL: Young male, in no obvious distress. Slow mentation noted. Afebrile and anicteric. HEENT: Normocephalic, atraumatic. Pupils are equal and reacting to light. Oral mucosa is moist. NECK: Supple and nontender with full range of motion. RESPIRATORY: Good air entry bilaterally with some transmitted sounds. Work of breathing is not increased, and there is no respiratory distress. CARDIOVASCULAR: Regular rhythm and rate with normal heart sounds 1 and 2. No murmur was appreciated. GI: Abdomen is full, soft, nontender, nondistended with normal bowel sounds. EXTREMITIES: Mild to moderate bilateral leg edema noted. No erythema or ecchymosis noted. NEUROLOGIC: Conscious and alert and oriented x3 with appropriate mental status. The patient is rather slow. DIAGNOSTIC DATA: CMP showed sodium 142, potassium 3.4, chloride 98, CO2 of 32, BUN 28, creatinine 5.16, glucose 108, calcium 7.0, total bilirubin 0.2, AST 60, ALT 67, alkaline phosphatase 61, CK 3014, total protein 4.6, and albumin 2.6. CBC showed WBC count of 10.6, hemoglobin of 9.8, and platelet count of 383. ASSESSMENT AND PLAN: 1. Acute kidney injury. This is most likely due to acute tubular necrosis from myoglobinuria given features of rhabdomyolysis. Contribution from nephrolithiasis and obstructive stone cannot be ruled out as patient was found to have unilateral hydronephrosis due to stone, for which he had stent placement. The patient is still making good amount of urine. Was started on hemodialysis for hyperkalemia and for volume management. Last dialysis was on November 12, 2018. We will plan for hemodialysis treatment tomorrow, November 14. 2. Rhabdomyolysis: We will continue IV fluid therapy. We will, however, add diuretic to help with urine flow and volume management in between dialysis. 3. Metabolic alkalosis: This is due to alkaline therapy/Dialysis. We will change to LR and monitor renal function and electrolytes. 4. Left-sided hydronephrosis: Due to nephrolithiasis. The patient is status post ureteral stent placement. Lithotripsy is contemplated. 5. Hypokalemia: Persistent. Expected to improve with treatment with LR. We will monitor and replete as needed. Job ID: [id number] MTDD
[2018-11-14] MEDS: Lactated Ringer's 1,000 ML IV SCH ×2 (03:26→17:08)
[2018-11-14] MEDS: Piperacillin/Tazobactam 2.25 GM in Sodium Chloride 0.9% 100 ML IVPB SCH ×3 (03:26→20:32)
[2018-11-14] MEDS: traMADol HCl 50 MG TAB PO PRN ×2 (04:54→17:05)
[2018-11-14 05:44] LABS: #Eosinphils 0.1 thou/uL (0.0-0.7); #Lymphocytes 1.1 thou/uL (1.20-3.40); #Monocytes 0.7 thou/uL (0.11-0.59); #Neutrophils 9.5 thou/uL (1.40-6.50); %Basophils 0.1 % (0.0-1.0); %Eosinophils 0.9 % (0.0-10.0); %Monocytes 5.9 % (0.0-10.0); %Neutrophils 83.1 % (42.0-75.0); Hemoglobin 9.4 g/dL (14.0-18.0); Mean Corpuscular HGB CONC 33.5 g/dL (32.0-36.0); Mean Corpuscular Volume 92.5 fL (78.0-98.0); Mean Platelet Volume 5.4 fL (7.4-10.4); Platelet Count 344 thou/uL (130-400); RBC Distribution Width 12.1 % (11.5-14.5); Red Blood Cell (RBC) Count 3.02 mill/uL (4.70-6.10); White Blood Cell (WBC) Count 11.5 thou/uL (4.8-10.8)
[2018-11-14 06:11] LABS: ALT (SGPT) 64 U/L (8-55); AST (SGOT) 55 U/L (5-34); Albumin 2.7 g/dL (3.5-5.0); Alkaline Phosphatase 59 U/L (40-150); Anion Gap 15 mmol/L (10-20); BUN (Urea Nitrogen) 31 mg/dL (8.9-20.6); Bilirubin, Total 0.2 mg/dL (0.2-1.2); CK (CPK) 2226 U/L (30-200); Calc. Creatinine Clearance 23 mL/min (70-130); Carbon Dioxide 33 mmol/L (22-29); Chloride 95 mmol/L (98-107); Estimated GFR-MDRD 12; Glucose 106 mg/dL (70-105); Potassium 3.3 mmol/L (3.5-5.1); Protein, Total 4.7 g/dL (6.0-8.3); Sodium 140 mmol/L (136-145)
[2018-11-14] MEDS ORDERED: Potassium Chloride 20 MEQ TAB PO SCH (06:31)
--- NOTE | 2018-11-14 06:48 | PDOC.FM ---
- Subjective Subjective: Patient complains of dysuria and hematuria. No flank pain, no nausea, vomiting, fevers, chills. - Objective MAR Reviewed: Yes Vital Signs & Weight: Vital Signs (12 hours) Temp Pulse Resp BP BP Pulse Ox 11/14/18 04:00 99.3 F 95 12 167/106 H 94 L 11/13/18 20:05 95 11/13/18 19:20 98.1 F 90 18 157/96 H 95 Weight Admit Weight 81.284 kg Weight 85.82 kg Most Recent Monitor Data Heart Rate from ECG 87 NIBP 157/99 NIBP BP-Mean 118 Respiration from ECG 16 SpO2 95 I&O: 11/12/18 11/13/18 11/14/18 06:59 06:59 06:59 Intake Total 4580 4532 3878 Output Total 4400 4125 3325 Balance 180 407 553 Result Diagrams: 11/14/18 05:28 11/14/18 05:28 Phys Exam - Physical Examination Constitutional: NAD receiving dailysis HEENT: PERRLA, moist MMs left tunnel cath in place Neck: no JVD Cardiovascular: RRR, no significant murmur Gastrointestinal: soft, no distention Neurological: non-focal, moves all 4 limbs Psychiatric: normal affect Dx/Plan (1) AMAYA (acute kidney injury) Code(s): N17.9 - ACUTE KIDNEY FAILURE, UNSPECIFIED Status: Acute (2) Acute renal failure (ARF) Status: Acute (3) Leukocytosis Code(s): D72.829 - ELEVATED WHITE BLOOD CELL COUNT, UNSPECIFIED Status: Acute (4) Rhabdomyolysis Code(s): M62.82 - RHABDOMYOLYSIS Status: Acute (5) Transaminitis Code(s): R74.0 - NONSPEC ELEV OF LEVELS OF TRANSAMNS & LACTIC ACID DEHYDRGNSE Status: Acute - Plan Plan: 27 yo gentleman who presented with diffuse pain admitted for AMAYA/ARF, rhabdo, hyponatremia, and transaminitis. Hosp day: 4, ICU day: 4 AMAYA on CKD -DDX: ATN from rhabdo/ischemia vs GN --Considered drug induced nephropathy as pt reports sniffing paint thinner ( tenaco) daily; spoke with poison control who stated that inhaled substances such as this are not well absorbed and likely wouldn't be causing his renal failure, however he is at risk for ventricular tachycardia --Nephro on board: creatinine still elvated by stable continue with HD --Pending glomerulonephritis workup --Continue LR, CK trending down Hypomangesemia -will started on PO Mg Leukoctyosis with hematuria -WBC 11 -Afebrile, will order UA -Possible UTI Abdominal distention with nausea- -Pt is on norco, tram for pain -ordered KUB -will also try a GI cocktail -abd CT unremarkable on admission -will check an H. 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 Rhabdo-CK improving, continue isotonic fluids. ATN-pending glomerulonephritis workup. Leukocytosis-ordered UA, possible UTI despite being on abx. Procal negative. Afebrile; however continue to monitor-if spikes fever continue further workup. No cardiac events aside from sinus tachycarida intermittently on tele monitors-will transfer to medical. HypoMg-will replace, recheck in AM Addendum - Attending - Attending Attestation Date/Time: 11/14/18 1342 I personally evaluated the patient and discussed the management with Dr. Laughlin I agree with the History, Examination, Assessment and Plan documented above with any addition or exceptions noted below.appear to have begun with increased urinary output. He is tolerating HD well appreciate Nephrology recommendations
[2018-11-14 07:54] LABS: Vancomycin, Random 16.6 ug/mL (See Comment)
--- NOTE | 2018-11-14 08:57 | PRG ---
DATE OF SERVICE: 11/14/2018 SUBJECTIVE: A 27-year-old admitted with acute kidney injury associated with markedly elevated CK and mental status changes. The patient was started on hemodialysis for volume management as well as for acute uremic symptoms, clinically improved. Complains of dysuria and continues to have hematuria. He is still making large amounts of urine. OBJECTIVE: VITAL SIGNS: Blood pressure 167/106, pulse 95, respiratory rate 12, SpO2 94 on room air, temperature 99.3. GENERAL: Young male, in no obvious distress. Afebrile, anicteric, and acyanotic. HEENT: Normocephalic, atraumatic. Pupils are equal and reacting to light. RESPIRATORY: Good air entry bilateral with no obvious crackles or rhonchi or use of accessory muscles. CARDIOVASCULAR: Regular rhythm and rate. Normal heart sounds one and two. GI: Abdomen is full, soft, nontender, nondistended with normal bowel sounds. EXTREMITIES: Mild bilateral leg edema noted. No erythema or ecchymosis. NEUROLOGIC: Conscious and alert, oriented x3 with appropriate mental status. DIAGNOSTIC DATA: CBC showed WBC count of 11.5, hemoglobin 9.4, platelet 344. BMP showed sodium 140, potassium 3.3, chloride 93, CO2 33, BUN 31, creatinine 5.8, glucose 106. CK is 2226. Magnesium is 1.4. ASSESSMENT AND PLAN: 1. Acute kidney injury: This was thought to be due to myoglobinuric acute tubular necrosis. Resolution is anticipated. Contribution from nephrolithiasis with obstruction cannot be ruled out. The patient continues to make adequate urine. The patient will receive hemodialysis today and we would subsequently monitor his renal function. 2. Volume status: Acceptable. We will do UF as tolerated. The patient continued to make large amount of urine. 3. Hypokalemia: Persistent. May be related to hypomagnesemia. We will replete potassium with potassium chloride. 4. Hypomagnesemia: We will replete his magnesium sulfate. 5. Rhabdomyolysis: We will continue IV fluids to force diuresis. 6. Nephrolithiasis with obstruction and left-sided hydronephrosis: The patient is status post ureteric stent. Urology is following and lithotripsy is contemplated as compliance with followup is questionable. Job ID: [id number] [facility]
[2018-11-14] MEDS ORDERED: Magnesium Sulfate 4 GM in Sodium Chloride 0.9% 250 ML 250 ML IVPB SCH (09:15)
[2018-11-14] MEDS ORDERED: Heparin 1,000 UNITS/ML VIAL ONE (11:11)
[2018-11-14] MEDS: Heparin 5,000 UNITS/ML VIAL SC SCH ×2 (12:01→20:34)
[2018-11-14] MEDS: Magnesium Oxide 400 MG TAB PO SCH ×2 (12:02→20:33)
[2018-11-14 12:18] LABS: Bilirubin Negative (Negative); Blood, Urine Large (Negative); Clarity CLOUDY (Clear); Glucose, Urine (Dipstick) Negative (Negative); Leukocyte Small (Negative); Nitrite Negative (Negative); Protein, Urine (Dipstick) 30 mg/dL (Neg-Trace); Specific Gravity, Urine 1.004 (1.002-1.036); Urobilinogen 0.2 mg/dL (0.2-1.0)
[2018-11-14 12:20] LABS: Bacteria/HPF None Seen HPF (None Seen); Hyaline Casts/LPF 0-3 HYALINE CAST LPF (0-3 Hyaline); RBC/HPF GREATER THAN 50-TNTC HPF (0-3); Squamous Epithelial 0-3 HPF (0-3)
[2018-11-14 20:09] LABS: PTT 36.3 SEC (22.9-36.1); Prothrombin Time 13.6 SEC (12.0-14.7)
[2018-11-14] MEDS: chlorproMAZINE HCl 50 MG/2 ML AMP IM PRN (22:41)
[2018-11-14] MEDS: Acetaminophen 500 MG TAB PO PRN (23:50)
[2018-11-15] MEDS: traMADol HCl 50 MG TAB PO PRN ×2 (01:37→13:42)
[2018-11-15] MEDS: Lactated Ringer's 1,000 ML IV SCH ×4 (01:44→18:49)
[2018-11-15] MEDS: Piperacillin/Tazobactam 2.25 GM in Sodium Chloride 0.9% 100 ML IVPB SCH ×4 (04:21→21:07)
[2018-11-15 05:13] LABS: #Eosinphils 0.1 thou/uL (0.0-0.7); #Lymphocytes 1.3 thou/uL (1.20-3.40); #Monocytes 0.6 thou/uL (0.11-0.59); #Neutrophils 6.2 thou/uL (1.40-6.50); %Basophils 0.4 % (0.0-1.0); %Monocytes 7.1 % (0.0-10.0); %Neutrophils 75.4 % (42.0-75.0); Hemoglobin 9.2 g/dL (14.0-18.0); Mean Corpuscular HGB CONC 32.7 g/dL (32.0-36.0); Mean Corpuscular Hemoglobin 30.6 pg (27.0-31.0); Mean Corpuscular Volume 93.4 fL (78.0-98.0); Mean Platelet Volume 5.6 fL (7.4-10.4); Platelet Count 378 thou/uL (130-400); RBC Distribution Width 12.2 % (11.5-14.5); Red Blood Cell (RBC) Count 3.01 mill/uL (4.70-6.10); White Blood Cell (WBC) Count 8.2 thou/uL (4.8-10.8)
[2018-11-15 05:34] LABS: ALT (SGPT) 67 U/L (8-55); AST (SGOT) 61 U/L (5-34); Albumin 2.7 g/dL (3.5-5.0); Alkaline Phosphatase 76 U/L (40-150); Anion Gap 11 mmol/L (10-20); BUN (Urea Nitrogen) 20 mg/dL (8.9-20.6); Bilirubin, Total 0.2 mg/dL (0.2-1.2); CK (CPK) 1440 U/L (30-200); Calc. Creatinine Clearance 34 mL/min (70-130); Calcium 7.8 mg/dL (7.8-10.44); Carbon Dioxide 32 mmol/L (22-29); Chloride 99 mmol/L (98-107); Estimated GFR-MDRD 19; Globulin 2.2 g/dL (2.4-3.5); Glucose 101 mg/dL (70-105); Magnesium 2.1 mg/dL (1.6-2.6); Potassium 3.8 mmol/L (3.5-5.1); Protein, Total 4.9 g/dL (6.0-8.3); Sodium 138 mmol/L (136-145)
[2018-11-15] MEDS: Acetaminophen 500 MG TAB PO PRN ×2 (06:36→22:17)
[2018-11-15] MEDS ORDERED: traMADol HCl 50 MG TAB PO PRN (06:56)
--- NOTE | 2018-11-15 07:07 | PDOC.FM ---
- Subjective Subjective: Still having pain in suprpubic area. Dysuria. - Objective Vital Signs & Weight: Vital Signs (12 hours) Temp Pulse Resp BP BP BP Pulse Ox 11/15/18 04:00 99.8 F H 108 H 20 138/83 92 L 11/15/18 01:38 100.3 F H 103 H 16 118/74 11/15/18 00:00 100.2 F H 110 H 20 170/120 H 92 L 11/14/18 23:51 99 170/120 H 11/14/18 20:00 98.7 F 92 18 169/125 H 93 L 11/14/18 19:43 93 L Weight Admit Weight 81.284 kg Weight 85.82 kg Most Recent Monitor Data Heart Rate from ECG 87 NIBP 157/99 NIBP BP-Mean 118 Respiration from ECG 16 SpO2 95 I&O: 11/14/18 11/15/18 11/16/18 06:59 06:59 06:59 Intake Total 3878 3490 Output Total 3725 4400 Balance 153 -910 Result Diagrams: 11/15/18 05:00 11/15/18 05:00 Phys Exam - Physical Examination distress from pain HEENT: PERRLA Gastrointestinal: soft mild distension Neurological: non-focal, moves all 4 limbs Psychiatric: A&O x 3 Deviation from normal: Abd: suprapubic tenderness-no orchitis or testicular tenderness -: no penile discharge Dx/Plan (1) AMAYA (acute kidney injury) Code(s): N17.9 - ACUTE KIDNEY FAILURE, UNSPECIFIED Status: Acute (2) Acute renal failure (ARF) Status: Acute (3) Leukocytosis Code(s): D72.829 - ELEVATED WHITE BLOOD CELL COUNT, UNSPECIFIED Status: Acute (4) Rhabdomyolysis Code(s): M62.82 - RHABDOMYOLYSIS Status: Acute (5) Transaminitis Code(s): R74.0 - NONSPEC ELEV OF LEVELS OF TRANSAMNS & LACTIC ACID DEHYDRGNSE Status: Acute - Plan Plan: 27 yo gentleman who presented with diffuse pain admitted for AMAYA/ARF, rhabdo, hyponatremia, and transaminitis. Hosp day: 4, ICU day: 4 AMAYA on CKD -DDX: ATN from rhabdo/ischemia vs GN --Considered drug induced nephropathy as pt reports sniffing paint thinner ( tenaco) daily; spoke with poison control who stated that inhaled substances such as this are not well absorbed and likely wouldn't be causing his renal failure, however he is at risk for ventricular tachycardia --Nephro on board: creatinine still elvated by stable continue with HD --Pending glomerulonephritis workup --Continue LR, CK trending down Hypomangesemia -will started on PO Mg Leukoctyosis with hematuria -WBC 11 -Afebrile, will order UA -Possible UTI Abdominal distention with nausea- -Pt is on norco, tram for pain -ordered KUB -will also try a GI cocktail -abd CT unremarkable on admission -will check an H. 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 ATN/ARF-pending glomerulonephritis workup, continue fluids, adequate UO. HTN-lebatlol PRN, likely 2/2 to pain. will inc. pain regimen, continue to monitor. Electrolytes stable. Nephro following, apreciate recs. Nephrolithiasis-s/p stent, lithotripsy friday. Inc tramadol frequency with morphine x1 to help with pain control. Add flomax to help with stone passing. Addendum - Attending - Attending Attestation Date/Time: 11/16/18 3298 I personally evaluated the patient and discussed the management with Dr. Laughlin I agree with the History, Examination, Assessment and Plan documented above with any addition or exceptions noted below.
[2018-11-15] MEDS ORDERED: Morphine 2 MG/ML SYRINGE SLOW IVP SCH ×3 (07:16→18:45)
[2018-11-15] MEDS: Heparin 5,000 UNITS/ML VIAL SC SCH ×2 (08:01→21:18)
[2018-11-15] MEDS: Magnesium Oxide 400 MG TAB PO SCH ×2 (08:01→21:13)
[2018-11-15] MEDS ORDERED: Tamsulosin HCl 0.4 MG CAP PO SCH ×2 (09:15→21:00)
[2018-11-15] MEDS ORDERED: hydrALAZINE 20 MG/ML VIAL SLOW IVP SCH (13:15)
[2018-11-15] MEDS ORDERED: Morphine 4 MG/ML VIAL ONE (21:11)
[2018-11-15] MEDS ORDERED: Morphine 2 MG/ML SYRINGE SLOW IVP PRN (22:00)
[2018-11-15] MEDS: chlorproMAZINE HCl 50 MG/2 ML AMP IM PRN (22:34)
[2018-11-16 03:53] LABS: #Eosinphils 0.1 thou/uL (0.0-0.7); #Lymphocytes 1.6 thou/uL (1.20-3.40); #Monocytes 0.6 thou/uL (0.11-0.59); #Neutrophils 6.2 thou/uL (1.40-6.50); %Basophils 0.5 % (0.0-1.0); %Eosinophils 1.2 % (0.0-10.0); %Monocytes 7.2 % (0.0-10.0); %Neutrophils 72.1 % (42.0-75.0); Hemoglobin 9.5 g/dL (14.0-18.0); Mean Corpuscular HGB CONC 32.5 g/dL (32.0-36.0); Mean Corpuscular Hemoglobin 30.4 pg (27.0-31.0); Mean Corpuscular Volume 93.6 fL (78.0-98.0); Mean Platelet Volume 5.7 fL (7.4-10.4); Platelet Count 418 thou/uL (130-400); RBC Distribution Width 12.1 % (11.5-14.5); Red Blood Cell (RBC) Count 3.14 mill/uL (4.70-6.10); White Blood Cell (WBC) Count 8.5 thou/uL (4.8-10.8)
[2018-11-16 04:13] LABS: ALT (SGPT) 69 U/L (8-55); AST (SGOT) 56 U/L (5-34); Albumin 3.2 g/dL (3.5-5.0); Alkaline Phosphatase 90 U/L (40-150); Anion Gap 18 mmol/L (10-20); BUN (Urea Nitrogen) 31 mg/dL (8.9-20.6); Bilirubin, Total 0.2 mg/dL (0.2-1.2); CK (CPK) 1276 U/L (30-200); Calc. Creatinine Clearance 30 mL/min (70-130); Calcium 8.7 mg/dL (7.8-10.44); Carbon Dioxide 27 mmol/L (22-29); Chloride 98 mmol/L (98-107); Estimated GFR-MDRD 16; Globulin 2.6 g/dL (2.4-3.5); Glucose 101 mg/dL (70-105); Potassium 3.8 mmol/L (3.5-5.1); Protein, Total 5.8 g/dL (6.0-8.3); Sodium 139 mmol/L (136-145)
[2018-11-16] MEDS: Piperacillin/Tazobactam 2.25 GM in Sodium Chloride 0.9% 100 ML IVPB SCH ×3 (05:05→20:49)
[2018-11-16] MEDS: Lactated Ringer's 1,000 ML IV SCH ×2 (05:05→08:37)
[2018-11-16] MEDS: traMADol HCl 50 MG TAB PO PRN (05:20)
[2018-11-16] MEDS ORDERED: Docusate 100 MG CAP PO PRN (06:22)
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
[2018-11-16] MEDS ORDERED: Senokot 8.6 MG TAB PO PRN (06:23)
[2018-11-16 07:23] LABS: Phosphorus 7.5 mg/dL (2.3-4.7)
[2018-11-16] MEDS: Magnesium Oxide 400 MG TAB PO SCH ×2 (08:31→20:52)
[2018-11-16] MEDS: Heparin 5,000 UNITS/ML VIAL SC SCH ×2 (08:31→20:52)
[2018-11-16] MEDS: Tamsulosin HCl 0.4 MG CAP PO SCH (08:32)
[2018-11-16] MEDS: Morphine 4 MG/ML VIAL SLOW IVP PRN ×2 (08:40→20:48)
--- NOTE | 2018-11-16 09:37 | PRG ---
DATE OF SERVICE: 11/16/2018 Dictating this note on behalf of Dr. Holt. SUBJECTIVE: We reviewed how he has a stone that Dr. Holt will anticipate operating on Friday. He can eat and drink what he likes up until midnight, Friday to Friday. OBJECTIVE: VITAL SIGNS: His vitals have been stable. He put 1600 out. DIAGNOSTIC DATA: His creatinine is trending down, but 4.58 today. H and H are stable at 9.5 and 29.4. Urine from the showed no bacteria. ASSESSMENT AND PLAN: We have a 27-year-old male admitted with acute renal failure that is multifactorial, but also had obstructing 10 mm left stone, status post stent in anticipation of procedure on Friday. Job ID: [id number] MTDD
[2018-11-16] MEDS ORDERED: NIFEdipine XL 60 MG TAB PO SCH (11:00)
--- NOTE | 2018-11-16 11:07 | PRG ---
DATE OF SERVICE: 11/16/2018 SUBJECTIVE: Mr. Otero is a 27-year-old male, who presented for an acute kidney injury on top of chronic renal failure? He was initially on dialysis due to uremic signs and symptoms. He now undergoes three times a week dialysis. During the initial workup, he was found to have left-sided hydronephrosis. There was a 1 cm proximal ureteral stone noted. Ureteral stent has been placed by Urology. He has another procedure this coming Friday. No new complaints today. OBJECTIVE: VITAL SIGNS: Blood pressure is 164/119, heart rate 98, respiratory rate 16, temperature 99, and pulse ox 95%. GENERAL: Awake, alert, comfortable, not in distress. SKIN: Adequate turgor. HEENT: Slightly pale conjunctivae. Anicteric sclerae. No neck mass. No carotid bruits. No JVD. CHEST: No deformities. LUNGS: Clear breath sounds. HEART: Normal sinus rhythm. No murmur. No gallops. No rubs. ABDOMEN: Globular, soft, nontender. No masses. EXTREMITIES: No edema. No deformities. MEDICATIONS: Medications of November 16, 2018, was reviewed. LABORATORY DATA: Laboratories of November 16, 2018, sodium 139, potassium 3.8, chloride 98, carbon dioxide 27, BUN 31, creatinine 4.58, phosphorus 7.5, magnesium 2.0, AST 56, ALT 69. KALPANA is negative. ANCA is negative. Hepatitis B and C as well as HIV are all negative. ASSESSMENT AND PLAN: 1. Acute kidney injury-unclear etiology. Myoglobinuric acute tubular necrosis is always a possibility. He does have hematuria and proteinuria. Serological workup for chronic glomerulonephritis has been negative so far. He will continue current maintenance hemodialysis of 3 times a week. There is no evidence of renal recovery. 2. Left hydronephrosis-status post ureteral stent placement. Continue current management. Urology is following. 3. Hypertension. I will probably add nifedipine 30 mg XL tablet once a day. 4. Anemia. We will start Epogen once the blood pressure is better controlled. Job ID: [id number]
[2018-11-16 13:40] VITALS: BMI 31.4
[2018-11-16] MEDS: Ferrous Sulfate 325 MG TAB PO SCH (15:45)
--- NOTE | 2018-11-16 15:57 | RAD ---
CHEST 1 VIEW: HISTORY: Left-sided chest pain. COMPARISON: Chest radiograph of 11/09/2018. FINDINGS: Left side central venous catheter tip sits at the right atrium. Dialysis catheter tip sits at the ca voatrial junction. The pulmonary edema has improved. No pneumothorax or large effusion. IMPRESSION: Improving volume overload. POS: TPC
[2018-11-17] MEDS: Acetaminophen 500 MG TAB PO PRN ×2 (01:24→20:46)
[2018-11-17] MEDS: Lactated Ringer's 1,000 ML IV SCH ×3 (01:24→18:52)
[2018-11-17] MEDS: Morphine 4 MG/ML VIAL SLOW IVP PRN ×3 (01:24→20:46)
[2018-11-17] MEDS: Piperacillin/Tazobactam 2.25 GM in Sodium Chloride 0.9% 100 ML IVPB SCH ×3 (04:18→20:46)
[2018-11-17 04:38] LABS: #Eosinphils 0.1 thou/uL (0.0-0.7); #Lymphocytes 1.4 thou/uL (1.20-3.40); #Monocytes 0.5 thou/uL (0.11-0.59); #Neutrophils 5.9 thou/uL (1.40-6.50); %Basophils 0.5 % (0.0-1.0); %Eosinophils 1.7 % (0.0-10.0); %Lymphocytes 17.9 % (21.0-51.0); %Monocytes 5.9 % (0.0-10.0); %Neutrophils 73.9 % (42.0-75.0); Hemoglobin 9.6 g/dL (14.0-18.0); Mean Corpuscular HGB CONC 33.2 g/dL (32.0-36.0); Mean Corpuscular Hemoglobin 31.2 pg (27.0-31.0); Mean Platelet Volume 5.5 fL (7.4-10.4); Platelet Count 437 thou/uL (130-400); Red Blood Cell (RBC) Count 3.08 mill/uL (4.70-6.10); White Blood Cell (WBC) Count 7.9 thou/uL (4.8-10.8)
[2018-11-17 04:55] LABS: Phosphorus 6.8 mg/dL (2.3-4.7)
[2018-11-17 04:57] LABS: ALT (SGPT) 61 U/L (8-55); AST (SGOT) 44 U/L (5-34); Albumin 3.4 g/dL (3.5-5.0); Alkaline Phosphatase 93 U/L (40-150); Anion Gap 21 mmol/L (10-20); BUN (Urea Nitrogen) 39 mg/dL (8.9-20.6); Bilirubin, Total 0.2 mg/dL (0.2-1.2); CK (CPK) 814 U/L (30-200); Calc. Creatinine Clearance 30 mL/min (70-130); Calcium 8.9 mg/dL (7.8-10.44); Carbon Dioxide 25 mmol/L (22-29); Chloride 99 mmol/L (98-107); Estimated GFR-MDRD 16; Globulin 2.7 g/dL (2.4-3.5); Glucose 112 mg/dL (70-105); Magnesium 1.6 mg/dL (1.6-2.6); Potassium 3.6 mmol/L (3.5-5.1); Protein, Total 6.1 g/dL (6.0-8.3); Sodium 141 mmol/L (136-145)
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
--- NOTE | 2018-11-17 08:02 | PRG ---
DATE OF SERVICE: 11/17/2018 SUBJECTIVE: The patient seems more alert and awake, mother at bedside. Complaining of left subcutaneous chest discomfort. Denies shortness of breath. OBJECTIVE: VITAL SIGNS: Stable. He is afebrile. Blood pressure 150/96. I's and O's; 5460 in and 5225 of urine out. ABDOMEN: Positive bowel movements. Abdomen is soft, nontender, and nondistended. No CVA tenderness. CHEST: Does demonstrate a substernal prominence, there is no ecchymosis. Hemodialysis catheter is appropriately secured. No significant hematoma is appreciated. PERTINENT LABORATORY DATA: White count 7, hemoglobin 9.6, and platelet 437. Coagulation profiles within normal limits; INR 1.0, PTT of 36. BUN 39, creatinine of 4.47. Cultures, urine culture negative on November 14. IMPRESSION AND PLAN: Mr. Otero is a 27-year-old male admitted for, 1. Renal failure. 2. History of polysubstance abuse. 3. History of left-sided hydronephrosis secondary to 1-cm proximal ureteral stone, status post ureteral stent last week. The patient continues to receive hemodialysis Friday, , and Friday. He is scheduled for ureteroscopy, laser lithotripsy tomorrow. Again, I discussed with mother that treatment of his ureteral stone will not resolve his renal failure, as it is multifactorial, however, warrants treatment in hopes that his renal function will improve over course of observation and ongoing management. The patient and mother desires to proceed with ureteroscopy, laser lithotripsy tomorrow. N.p.o. After midnight. Continue broad-spectrum antibiotics. Hold heparin for OR. Nonspecific substernal chest mass. CT of the chest ordered. Job ID: [id number] [facility]
[2018-11-17 08:29] LABS: Vancomycin, Random 4.1 ug/mL (See Comment)
[2018-11-17] MEDS: Ferrous Sulfate 325 MG TAB PO SCH ×2 (08:41→15:15)
[2018-11-17] MEDS: Magnesium Oxide 400 MG TAB PO SCH ×2 (08:41→20:46)
[2018-11-17] MEDS ORDERED: NIFEdipine XL 60 MG TAB PO SCH (09:00)
--- NOTE | 2018-11-17 09:13 | PRG ---
DATE OF SERVICE: 11/17/2018 SUBJECTIVE: Mr. Otero is a 27-year-old male, who was admitted for his acute kidney injury. The exact etiology is unclear. Although myoglobinuric ATN is possibility due to the elevated CPK. He has been undergoing dialysis. I have reviewed his numbers and still no evidence of renal recovery with this patient. In addition, the patient was also incidentally found to have left renal obstructive uropathy. He is currently being followed by Urology, Dr. Holt. In addition, the patient will undergo laser lithotripsy tomorrow as well as ureteroscopy. CT scan of the chest was ordered and is currently pending. The patient is currently undergoing hemodialysis. OBJECTIVE: VITAL SIGNS: Blood pressure 150/96, heart rate 89, respiratory rate 19, temperature 98.4, pulse ox 94%. GENERAL: Noted to be awake, alert, comfortable, not in distress. SKIN: Adequate turgor. HEENT: He has a pinkish conjunctivae. Anicteric sclerae. No neck mass. No carotid bruits. No JVD. CHEST: No deformities. LUNGS: Clear breath sounds. No wheezing. No crackles. HEART: Normal sinus rhythm. No murmur. No gallops. No rubs. ABDOMEN: Globular, soft, nontender. No masses. EXTREMITIES: No edema. No deformities. MEDICATIONS: Medications of November 17, 2018, reviewed. LABORATORY DATA: Laboratories of November 17, 2018, sodium 141, potassium 3.6, chloride 99, carbon dioxide 25, BUN is 39, creatinine 4.47, glucose 112, calcium 8.9, phosphorus 6.8, AST 44, ALT 61, albumin 3.4. ASSESSMENT AND PLAN: 1. Acute kidney injury-consider myoglobinuric ATN. Serologies for glomerulonephritis were relatively negative. Continue current management. Continue maintenance dialysis. 2. Hyperphosphatemia. Consider adding Renvela 800 mg one tablet t.i.d. with meals with this patient. 3. Hypertension, labile-recently nifedipine 60 mg XL tablet was added. 4. Left hydronephrosis-for ureteroscopy and possible lithotripsy tomorrow. Urology is following. 5. Agree with current management. Job ID: [id number]
--- NOTE | 2018-11-17 09:17 | CT ---
CT CHEST WITHOUT CONTRAST: HISTORY: Sternal mass. COMPARISON: 11/08/2018 TECHNIQUE: A noncontrast chest CT is performed in the axial plane. Coronal reformatted images are submitted for interpretation. FINDINGS: Note is made of a right-sided HemoSplit dialysis catheter and a left-sided internal jugular central v enous catheter. Limited evaluation of the mediastinal structures due to lack of IV contrast. No mediastinal mass, ly mphadenopathy, or hematoma. Heart size is within normal limits. No pericardial effusion. The visua lized aorta has a normal caliber. Incompletely evaluated left-sided double-J stent. There is a small bilateral pleural effusion with dependent atelectatic changes. Infiltrates in both lower lobes, as well as the left upper lobe, cannot be excluded. Trachea and central bronchi are pat ent. There are no lytic or blastic lesions in the osseous structures. There is abnormal soft tissue attenuation along the anteromedial aspect of the left hemithorax, super ficial to the pectoralis muscle. Lesions were not appreciated on the CT from 11/08/2018. Given the acuity, an infectious or inflammat ory process is favored. IMPRESSION: 1. Multiple soft tissue densities in the left chest, presumed to be due to infectious or inflammator y process, given the acute interval development. 2. Interval decrease in size of bilateral pleural effusions. 3. Increased opacities in the lung parenchyma, likely representing multiple infiltrates. Components of atelectasis cannot be excluded. POS: SERGIO
[2018-11-17] MEDS ORDERED: Vancomycin HCl 1.5 GM in Sodium Chloride 0.9% 250 ML 300 ML IVPB SCH (10:00)
[2018-11-17] MEDS: Sevelamer Carbonate 800 MG TAB PO SCH ×2 (12:53→15:15)
[2018-11-17] MEDS: Tamsulosin HCl 0.4 MG CAP PO SCH (12:55)
[2018-11-17] MEDS: NIFEdipine XL 60 MG TAB PO SCH (12:55)
[2018-11-17] MEDS: Heparin 5,000 UNITS/ML VIAL SC SCH ×2 (12:56→20:47)
--- NOTE | 2018-11-17 13:01 | PDOC.EVN ---
Event Note - Event Note Event Note: Case discussed with radiology. Will plan for US guided tissue biopsy of new mass found in left chest wall, not seen on prior CT from ~ 1 week ago. Suspect inflammatory process.
--- NOTE | 2018-11-17 15:37 | ULT ---
SONOGRAPHIC GUIDED BIOPSY LEFT CHEST WALL MASS: History: Enlarging subcutaneous mass left anterior chest wall. Technique: After explaining the procedure and answering all questions, sonographic survey shows a cluster of hyp oechoic masses within the subcutaneous tissues of the left anterior chest wall. The nodules are mostl y in the range of 4 to 7 mm. FINDINGS: Sterile technique and buffered local anesthesia, sonographic guidance and a lateral approach were use d to carefully advance an 18 gauge biopsy needle to the masses. Position was confirmed with sonograph y. Two core biopsy specimens were obtained and sent to pathology for evaluation. Needle was removed. Post procedure imaging shows no evidence of complication. Patient tolerated the procedure well and wa s returned in unchanged condition. IMPRESSION: Technically successful sonographic guided biopsy of left chest wall mass. Pathology is pending. POS: SERGIO
[2018-11-18] MEDS: Lactated Ringer's 1,000 ML IV SCH ×4 (01:24→20:01)
[2018-11-18] MEDS: Piperacillin/Tazobactam 2.25 GM in Sodium Chloride 0.9% 100 ML IVPB SCH ×3 (04:57→20:01)
--- NOTE | 2018-11-18 06:43 | PDOC.FM ---
- Subjective Subjective: s/p lithotrypsy this am. Endorses pain from central line and dialysis catheter. Worried about paying for dialysis since he doesn't have insurance. - Objective MAR Reviewed: Yes Vital Signs & Weight: Vital Signs (12 hours) Temp Pulse Resp BP Pulse Ox 11/18/18 04:00 99.5 F 109 H 20 154/98 H 96 11/18/18 00:00 99.0 F 111 H 20 166/106 H 93 L 11/17/18 20:00 99.2 F 103 H 20 164/105 H 94 L Weight Admit Weight 81.284 kg Weight 85.82 kg Most Recent Monitor Data Heart Rate from ECG 87 NIBP 157/99 NIBP BP-Mean 118 Respiration from ECG 16 SpO2 95 I&O: 11/16/18 11/17/18 11/18/18 06:59 06:59 06:59 Intake Total 4742 5460 4306 Output Total 1600 5225 2750 Balance 3142 235 1556 Result Diagrams: 11/19/18 06:23 11/20/18 07:03 Phys Exam - Physical Examination Constitutional: NAD HEENT: PERRLA, moist MMs Respiratory: no wheezing, no rales, clear to auscultation bilateral Cardiovascular: RRR, no significant murmur Gastrointestinal: soft, non-tender Musculoskeletal: no edema, pulses present Neurological: non-focal, normal sensation Psychiatric: normal affect, A&O x 3 Skin: no rash, normal turgor Dx/Plan (1) Acute renal failure (ARF) Status: Acute (2) AMAYA (acute kidney injury) Code(s): N17.9 - ACUTE KIDNEY FAILURE, UNSPECIFIED Status: Acute (3) Rhabdomyolysis Code(s): M62.82 - RHABDOMYOLYSIS Status: Acute (4) Transaminitis Code(s): R74.0 - NONSPEC ELEV OF LEVELS OF TRANSAMNS & LACTIC ACID DEHYDRGNSE Status: Acute (5) Elevated TSH Code(s): R79.89 - OTHER SPECIFIED ABNORMAL FINDINGS OF BLOOD CHEMISTRY Status : Acute (6) Elevated brain natriuretic peptide (BNP) level Code(s): R79.89 - OTHER SPECIFIED ABNORMAL FINDINGS OF BLOOD CHEMISTRY Status : Acute (7) Elevated lipase Code(s): R74.8 - ABNORMAL LEVELS OF OTHER SERUM ENZYMES Status: Acute (8) Acute tubular necrosis Code(s): N17.0 - ACUTE KIDNEY FAILURE WITH TUBULAR NECROSIS Status: Suspected (9) Soft tissue mass Code(s): M79.9 - SOFT TISSUE DISORDER, UNSPECIFIED Status: Acute - Plan Plan: 27 yo gentleman who presented with diffuse pain admitted for AMAYA/ARF, rhabdo, hyponatremia, and transaminitis. Hosp day: 9 AMAYA on CKD --suspected ATN from rhabdomyolysis --negative workup for GN --Considered drug induced nephropathy as pt reports sniffing paint thinner ( tenaco) daily; spoke with poison control who stated that inhaled substances such as this are not well absorbed and likely wouldn't be causing his renal failure, however he is at risk for ventricular tachycardia --Nephro on board: creatinine improved --Continue LR, CK trending down --dialysis T,R,S --consider dc tomorrow pending lithotrypsy --pt does not have insurance and is worried about paying for dialysis. Will consult financial assistance and CM. 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 - Echo showed 55-60% EF with mild MR, mild TR elevated lipase - likely 2/2 to poor perfusion/reactive - no indication of pancreatitis MRSE- -1/2 blood cx elevated PT/PTT - platelets wnl, monitor for DIC - no anticoag ppx for DVT AG Metabolic acidosis, resolved hyponatremia, resolved Abdominal distention with nausea, resolved Rhabdomyolisis, resolved lines: left IJ dialysis cath, right IJ CVC both placed 11/09 code: full ppx: heparin held for lithotrypsy, possible dc later today; pt needs dialysis set up TRS, can likely dc abx this afternoon Addendum - Attending - Attending Attestation Date/Time: 11/18/18 0853 I personally evaluated the patient and discussed the management with Dr. Chakraborty I agree with the History, Examination, Assessment and Plan documented above with any addition or exceptions noted below. 27 yo male s/p trauma admitted for AKF and rhabdo HD# 10 s/p lithotripsy this morning. No acute changes overnight. Doing well. VS reviewed. Labs reviewed. Imaging reviewed. NAD. RRR. No murmurs. CTAB. No w/c/r NT/ND. BS present. 1. AKF: nephro following. Etiology unclear at this time. s/p trauma and rhabdo - - intrinsic pathology suspected. Chronic etiologies appear ruled out. Will continue HD x3 per wk. Trend labs. Cr stable. UA improving. Continues to make urine. 2. Left ureteral nephroliathasis: s/p stent. Now s/p lithotripsy this AM. Urology following. Procal negative now. Cultures negative. Will d/c antibx. 3. HTN: Continue CCB. Monitor renal function closely. Add hydralazine if needed. 4. Rhabdo: Resolved 5. Electrolytes: Correct as needed. 6. Transaminitis: Likey related to trauma. Labs stable. No evidence of hepatitis. CT noncontrast no abnormalities. Trend weekly. 7. Left superfical chest mass: Possibly related to extensive trauma patient sustained. s/p biopsy. Monitor closely. Follow up with consultants. Continue in patient monitoring. Will start setting up outpatient HD. Araceli
[2018-11-18] MEDS ORDERED: Fentanyl 100 MCG/2 ML VIAL ONE ×3 (07:05→10:02)
[2018-11-18] MEDS: Sevelamer Carbonate 800 MG TAB PO SCH ×3 (07:33→16:12)
[2018-11-18] MEDS: Ferrous Sulfate 325 MG TAB PO SCH ×2 (07:33→16:12)
[2018-11-18] MEDS: Magnesium Oxide 400 MG TAB PO SCH ×2 (07:34→20:01)
[2018-11-18] MEDS ORDERED: Midazolam HCl 2 mg/2 ml Vial ONE (08:07)
[2018-11-18] MEDS ORDERED: Iothalamate Meglumine 60% 50 ML VIAL FS ONE (08:11)
[2018-11-18] MEDS ORDERED: Promethazine HCl 25 MG/ML VIAL IM PRN (10:05)
[2018-11-18] MEDS ORDERED: Ondansetron HCl/PF 4 MG/2 ML Vial IVP PRN (10:05)
[2018-11-18] MEDS ORDERED: Promethazine HCl 25 MG/ML VIAL SLOW IVP PRN (10:05)
--- NOTE | 2018-11-18 10:21 | RAD ---
RETROGRADE PYELOGRAM: 11/18/2018 HISTORY: Left-sided lithotripsy with stone manipulation and left stent placement. FINDINGS: A single radiograph from a retrograde pyelogram is provided. There is a wire curling in the left upp er quadrant, likely within the region of the left renal collecting system. No contrast media is injected on the single provided image. IMPRESSION: Retrograde pyelogram, as above. POS: SERGIO
--- NOTE | 2018-11-18 10:46 | OP ---
DATE OF PROCEDURE: 11/18/2018 PREOPERATIVE DIAGNOSES: 1. A 27-year-old male with acute renal failure secondary to rhabdomyolysis. 2. History of polysubstance abuse. 3. History of left hydronephrosis with 10 mm proximal ureteral calculi, nonobstructing left lower pole 4 mm renal calculi. POSTOPERATIVE DIAGNOSES: 1. A 27-year-old male with acute renal failure secondary to rhabdomyolysis. 2. History of polysubstance abuse. 3. History of left hydronephrosis with 10 mm proximal ureteral calculi, nonobstructing left lower pole 4 mm renal calculi. PROCEDURES PERFORMED: Cystoscopy, left retrograde, rigid ureteroscopy, basket extraction of stone debris within the ureter, balloon dilatation of the distal ureter, flexible ureteroscopy, pyeloscopy, laser lithotripsy of migrated proximal ureteral stone in the left mid pole, basket extraction of left lower pole stone, laser lithotripsy, basket extraction of stone fragments, and 16-Libyan Shea catheter placement. ANESTHESIA: General. COMPLICATIONS: None apparent. DISPOSITION: To recovery room in stable condition. SPECIMEN: Stone for chemical analysis. INDICATIONS FOR PROCEDURE AND HISTORY: Mr. Otero is a 27-year-old male, who presented with acute renal failure currently on dialysis. CT demonstrated left hydronephrosis due to a large proximal ureteral calculi obstructing with left lower pole 4 mm stone. He previously underwent ureteral stent, presents today for ureteroscopy and laser lithotripsy. The patient and family are fully informed that his renal failure is multifactorial, despite treatment of his ureteral calculi, his renal function continues to be determined for recovery. However, given large stone nidus, in hopes that his renal function will improve, ureteroscopy and laser lithotripsy of stone removal was advised. Risks and complications, indications including, but not limited to, bleeding, pain, infection, injury to adjacent organs, urosepsis, stricture formation, possible secondary procedure was reviewed with the patient and family in detail. They desired to proceed without reservation. DESCRIPTION OF PROCEDURE: After an informed consent was signed, the patient was taken to the operating room, placed in a dorsal lithotomy position with the genital area prepped and draped in the usual surgical sterile fashion. Bilateral JORGE hose SCDs and broad-spectrum antibiotics were provided. A 21-Libyan cystoscope was utilized, which demonstrated no evidence of urethral stricture. Bilobar coapting lateral lobes with no obstruction were noted. Bladder neck demonstrated no evidence of pathology. Bladder was entered, which demonstrated previous ureteral stent. This was removed to the level of the meatus and a 0.35 Sensor wire was passed to the left upper pole. At this time, we dilated his intramural ureter using a 12- Libyan 4 cm [employer] dilator in 2 segments. Intramural and distal ureter were dilated uneventfully. Subsequently, we passed the rigid ureteral scope without difficulty. There was a tiny 2 to 3 mm stone nidus that here in the distal ureter at the level of the SI joint, which was basket extracted. I cleared his ureter up further stone debris to the level of the proximal ureter just distal to the UPJ with a rigid ureteroscope. At this time, I did transition to a flexible ureteroscope as stone apparently had migrated into the kidney. A 10-Libyan dual-lumen access sheath was utilized to pass to the level of the proximal ureter. Retrograde pyelogram confirming proper placement of all wires and a 0.35 Super Stiff wire was passed in the left upper pole. An 11/13-Libyan navigator was passed without difficulty. A flexible ureteroscope digital scope was passed over the safety wire and pyeloscopy was performed. There was a large stone consistent with a proximal migration of his previous ureteral stone up the level of the mid pole. This was moved to the level of the upper pole and using 365 micron laser fiber, we laser lithotripsied the stone at this setting. Most of the stone was dusted; however, there were fragments that were amendable to be basket extracted. A Nitinol basket was utilized to basket all stone fragments amendable to be basket extracted. Those that were left were too small to basket as they were dustlike debris. I did do a pyeloscopy finding a left lower pole stone. It was somewhat challenging due to the acute infundibular angle. However, we were able to successfully basket extracted in the lower pole and retrieve uneventfully through the sheath. Ureteroscopy subsequently was performed demonstrating no evidence of ureteral mucosa trauma. The sheath was removed and a 6 x 26 double-J ureteral stent was passed over the working wire. Subsequently, all wires were removed. A newly appreciated urinary retention of postvoid residual 500 mL was noted in preop. Therefore, an indwelling Shea catheter was placed. I will initiate Flomax and anticipate voiding trial in a few days. Removal of stent in a timely fashion was advised as I do have concerns regarding followup compliance. Continue antibiotics for now. Job ID: [id number] MTDD
[2018-11-18] MEDS: NIFEdipine XL 60 MG TAB PO SCH (11:22)
[2018-11-18] MEDS: Tamsulosin HCl 0.4 MG CAP PO SCH ×2 (11:24→16:45)
[2018-11-18] MEDS: Morphine 4 MG/ML VIAL SLOW IVP PRN (12:57)
[2018-11-18] MEDS: traMADol HCl 50 MG TAB PO PRN (15:28)
[2018-11-18] MEDS ORDERED: Rocuronium Bromide 10 MG/ML (10ML VIAL) ONE (15:42)
[2018-11-18] MEDS ORDERED: PHENYLEPHRINE-NS 100 MCG/ML 10 ML SYRINGE ONE (15:42)
[2018-11-18] MEDS ORDERED: Ondansetron PF 4 MG/2 ML Vial ONE (15:42)
[2018-11-18] MEDS ORDERED: Dexamethasone 20 MG/5 ML VIAL ONE (15:42)
[2018-11-18] MEDS ORDERED: PROPOFOL 200 MG/20 ML VIAL ONE (15:42)
[2018-11-18] MEDS ORDERED: Lidocaine 1% PF 5 ML VIAL ONE (15:42)
[2018-11-18] MEDS ORDERED: Glycopyrrolate 0.2 MG/ML 5 ML SYRINGE ONE (15:42)
[2018-11-18] MEDS ORDERED: Phenazopyridine HCl 97.5 MG TABLET PO PRN (16:48)
[2018-11-19] MEDS: Piperacillin/Tazobactam 2.25 GM in Sodium Chloride 0.9% 100 ML IVPB SCH ×3 (04:55→20:52)
[2018-11-19 06:35] LABS: #Basophils 0.1 thou/uL (0.0-0.2); #Eosinphils 0.1 thou/uL (0.0-0.7); #Monocytes 0.6 thou/uL (0.11-0.59); %Basophils 0.8 % (0.0-1.0); %Eosinophils 1.2 % (0.0-10.0); %Lymphocytes 22.7 % (21.0-51.0); %Monocytes 7.2 % (0.0-10.0); %Neutrophils 68.1 % (42.0-75.0); Hemoglobin 8.8 g/dL (14.0-18.0); Mean Corpuscular HGB CONC 31.9 g/dL (32.0-36.0); Mean Corpuscular Hemoglobin 30.6 pg (27.0-31.0); Mean Corpuscular Volume 95.8 fL (78.0-98.0); Mean Platelet Volume 5.7 fL (7.4-10.4); Platelet Count 465 thou/uL (130-400); Red Blood Cell (RBC) Count 2.89 mill/uL (4.70-6.10); White Blood Cell (WBC) Count 8.9 thou/uL (4.8-10.8)
[2018-11-19 07:11] LABS: Anion Gap 17 mmol/L (10-20); BUN (Urea Nitrogen) 37 mg/dL (8.9-20.6); Calc. Creatinine Clearance 37 mL/min (70-130); Calcium 8.5 mg/dL (7.8-10.44); Carbon Dioxide 22 mmol/L (22-29); Chloride 105 mmol/L (98-107); Estimated GFR-MDRD 20; Glucose 99 mg/dL (70-105); Potassium 3.5 mmol/L (3.5-5.1); Sodium 140 mmol/L (136-145)
--- NOTE | 2018-11-19 07:39 | PDOC.FM ---
- Subjective Subjective: Slept well. Tolerating normal diet. Having some difficulty urinating. Incompletely voiding, but improved from yesterday. - Objective MAR Reviewed: Yes Vital Signs & Weight: Vital Signs (12 hours) Temp Pulse Resp BP Pulse Ox 11/19/18 04:00 99.8 F H 105 H 20 148/101 H 93 L 11/19/18 00:00 99.3 F 102 H 20 154/99 H 96 11/18/18 20:00 98.2 F 82 20 158/94 H 92 L Weight Admit Weight 81.284 kg Weight 85.82 kg Most Recent Monitor Data Heart Rate from ECG 87 NIBP 157/99 NIBP BP-Mean 118 Respiration from ECG 16 SpO2 95 I&O: 11/18/18 11/19/18 11/20/18 06:59 06:59 06:59 Intake Total 4306 4802 Output Total 2750 6220 Balance 1556 -1418 Result Diagrams: 11/19/18 06:23 11/19/18 06:23 Phys Exam - Physical Examination Constitutional: NAD HEENT: PERRLA, moist MMs Respiratory: no wheezing, no rales, clear to auscultation bilateral Cardiovascular: no significant murmur tachycardic Gastrointestinal: soft Musculoskeletal: no edema, pulses present Neurological: non-focal, normal sensation Psychiatric: normal affect, A&O x 3 Skin: no rash, normal turgor Dx/Plan (1) Acute renal failure (ARF) Status: Acute (2) AMAYA (acute kidney injury) Code(s): N17.9 - ACUTE KIDNEY FAILURE, UNSPECIFIED Status: Acute (3) Metabolic acidosis, increased anion gap Code(s): E87.2 - ACIDOSIS Status: Resolved (4) Hyponatremia Code(s): E87.1 - HYPO-OSMOLALITY AND HYPONATREMIA Status: Resolved (5) Rhabdomyolysis Code(s): M62.82 - RHABDOMYOLYSIS Status: Acute (6) Transaminitis Code(s): R74.0 - NONSPEC ELEV OF LEVELS OF TRANSAMNS & LACTIC ACID DEHYDRGNSE Status: Acute (7) Elevated TSH Code(s): R79.89 - OTHER SPECIFIED ABNORMAL FINDINGS OF BLOOD CHEMISTRY Status : Acute (8) Elevated brain natriuretic peptide (BNP) level Code(s): R79.89 - OTHER SPECIFIED ABNORMAL FINDINGS OF BLOOD CHEMISTRY Status : Acute (9) Elevated lipase Code(s): R74.8 - ABNORMAL LEVELS OF OTHER SERUM ENZYMES Status: Acute (10) Acute tubular necrosis Code(s): N17.0 - ACUTE KIDNEY FAILURE WITH TUBULAR NECROSIS Status: Suspected (11) Soft tissue mass Code(s): M79.9 - SOFT TISSUE DISORDER, UNSPECIFIED Status: Acute - Plan Plan: 27 yo gentleman who presented with diffuse pain admitted for AMAYA/ARF, rhabdo, hyponatremia, and transaminitis. Hosp day: 9 AMAYA on CKD --suspected ATN from rhabdomyolysis --negative workup for GN --Considered drug induced nephropathy as pt reports sniffing paint thinner ( tenaco) daily; spoke with poison control who stated that inhaled substances such as this are not well absorbed and likely wouldn't be causing his renal failure, however he is at risk for ventricular tachycardia --Nephro on board: creatinine improved --LR dc'd --dialysis T,R,S --pt does not have insurance and is worried about paying for dialysis. Will consult financial assistance and CM. 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 - Echo showed 55-60% EF with mild MR, mild TR elevated lipase - likely 2/2 to poor perfusion/reactive - no indication of pancreatitis MRSE- -1/2 blood cx elevated PT/PTT - platelets wnl, monitor for DIC - no anticoag ppx for DVT AG Metabolic acidosis, resolved hyponatremia, resolved Abdominal distention with nausea, resolved Rhabdomyolisis, resolved Leukoctyosis with hematuria, resolved -WBC 11 -Afebrile, urine cx shows no growth at 48 hours lines: left IJ dialysis cath removed 11/18, right IJ CVC both placed 11/09; left peripheral IV placed 11/18 code: full ppx: restarted heparin bid dispo: pending urology recs and financial assistance for dialysis as patient does not have insurance
--- NOTE | 2018-11-19 08:17 | PRG ---
DATE OF SERVICE: 11/19/2018 SUBJECTIVE: The patient states that he is doing okay. Mother at bedside. OBJECTIVE: VITAL SIGNS: Stable. Temperature 99.8, blood pressure 148/101. Voiding diary reviewed. I's and O's 4800 in, 6200 out. The patient spontaneously voids anywhere from 100 to 550 mL, per my parameters, the patient has been catheterized p.r.n. for PVR greater than 300. PVR amounts reviewed: 650, 675, 554. ABDOMEN: Soft, nontender, nondistended. PERTINENT LABORATORY DATA: White count 8, hemoglobin 8.8, BUN 37, creatinine 3.64. IMPRESSION AND PLAN: 1. A 27-year-old male with history of polysubstance abuse. 2. Admitted for acute renal failure, on hemodialysis, TTS. 3. History of left hydronephrosis due to a large left ureteral calculi, postoperative day #1 ureteroscopy, laser lithotripsy with stone burden, resolved. 4. Newly appreciated urinary retention requiring CIC. Yesterday, the patient was threatened to leave AMA, due to indwelling urethral Shea catheter, even threatened to pull the Shea catheter out, if I did not have orders provided to discontinue Shea. Therefore, the patient is on CIC p.r.n. I had a long conversation yesterday regarding importance of compliance with medical therapy, as he presented with life-threatening illness. Disposition is pending. I would like to ideally remove his stent prior to his discharge. As I anticipate, the patient will be in the hospital due to disposition and ongoing dialysis. I will tentatively schedule him for cysto stent pull next Friday. The patient and family informed. Importance of compliance to medical therapy reviewed. Job ID: [id number] MTDD
[2018-11-19] MEDS ORDERED: Tamsulosin HCl 0.4 MG CAP PO SCH (09:00)
--- NOTE | 2018-11-19 09:00 | PRG ---
DATE OF SERVICE: 11/19/2018 SUBJECTIVE: Mr. Otero is a 27-year-old male was admitted for acute kidney injury. The working diagnosis is he may have a myoglobinuric ATN. Currently, on maintenance hemodialysis. I am currently dialyzing him. I am at the bedside supervising his dialysis. He also had a procedure done yesterday, where he underwent cystoscopy and basket extraction of the stone debris within the ureter, laser lithotripsy of the proximal ureteral stone - currently in the left mid pole and basket extraction. He tolerated said procedure. No new complaints today. The patient denies any chest pain or shortness of breath. OBJECTIVE: VITAL SIGNS: Blood pressure 171/130 - before BP medications, heart rate 103, respiratory rate 18, temperature 98.6, and pulse ox is 96%. GENERAL EXAM: Awake, alert, comfortable, not in overt distress. SKIN: Adequate turgor. HEENT: He has a slightly pale conjunctivae. Anicteric sclerae. NECK: No neck mass. No carotid bruits. No JVD. CHEST: No deformities. LUNGS: Clear breath sounds. HEART: Normal sinus rhythm. No murmurs, gallops, or rubs. ABDOMEN: Globular, soft. Nontender. No masses. EXTREMITIES: No edema. No deformities. MEDICATIONS: Medications of November 19, 2018; was reviewed. LABORATORY DATA: Laboratories of November 19, 2018; sodium 140, potassium 3.5, chloride 105, carbon dioxide 22, BUN 37, creatinine 3.64, glucose 99, calcium 8.5. White count 8.9, hemoglobin 8.8. ASSESSMENT AND PLAN: 1. Acute kidney injury - secondary to a presumptive diagnosis of myoglobinuric ATN. Continue supportive care. No evidence of renal recovery. Continuing 3 times a week hemodialysis for this patient. 2. Left hydronephrosis - the patient is status post extraction of ureteral stone. Urology is following. 3. Anemia. Currently, the patient is on ferrous sulfate 325 mg p.o. b.i.d. 4. Hypertension. Continue current BP medications. Please note, recently Procardia XL 60 mg once a day was started. Overall prognosis remains guarded. Job ID: [id number]
[2018-11-19 09:02] LABS: Vancomycin, Trough 4.8 ug/mL
[2018-11-19] MEDS: Sevelamer Carbonate 800 MG TAB PO SCH ×3 (09:43→17:14)
[2018-11-19] MEDS: Magnesium Oxide 400 MG TAB PO SCH ×2 (09:43→20:51)
[2018-11-19] MEDS: Ferrous Sulfate 325 MG TAB PO SCH ×2 (09:43→17:14)
[2018-11-19] MEDS: Tamsulosin HCl 0.4 MG CAP PO SCH ×2 (09:44→20:51)
[2018-11-19] MEDS: Lactated Ringer's 1,000 ML IV SCH (11:20)
--- NOTE | 2018-11-19 11:20 | PRG ---
DATE OF SERVICE: 11/19/2018 ADDENDUM: Please add this as an addendum to the note of Dr. Evelyn Chakraborty. Mr. Otero is an unfortunate 27-year-old man who was admitted with rhabdomyolysis, acute tumor necrosis and renal failure. He ended upon dialysis which is where he is this morning. He seems to be tolerating this well and offers no new complaints. We are following him with the Nephrology team. He is nearing time for discharge if outpatient dialysis can be arranged. We are working with Case Management on this issue. Job ID: [id number]
[2018-11-19] MEDS: NIFEdipine XL 60 MG TAB PO SCH (13:19)
[2018-11-19] MEDS: Heparin 5,000 UNITS/ML VIAL SC SCH ×2 (15:31→20:51)
[2018-11-19] MEDS: traMADol HCl 50 MG TAB PO PRN (16:16)
[2018-11-20] MEDS: Piperacillin/Tazobactam 2.25 GM in Sodium Chloride 0.9% 100 ML IVPB SCH ×2 (05:01→11:28)
[2018-11-20 07:38] LABS: Anion Gap 17 mmol/L (10-20); BUN (Urea Nitrogen) 35 mg/dL (8.9-20.6); Calc. Creatinine Clearance 50 mL/min (70-130); Calcium 8.9 mg/dL (7.8-10.44); Carbon Dioxide 24 mmol/L (22-29); Chloride 102 mmol/L (98-107); Estimated GFR-MDRD 28; Glucose 101 mg/dL (70-105); Potassium 3.6 mmol/L (3.5-5.1); Sodium 139 mmol/L (136-145)
[2018-11-20 07:41] LABS: Iron 71 ug/dL (65-175); Iron Binding Capacity, Total 221 mcg/dL (261-462)
--- NOTE | 2018-11-20 08:29 | PRG ---
DATE OF SERVICE: 11/20/2018 SUBJECTIVE: The patient without complaints. Sleeping, easily arousable. OBJECTIVE: VITAL SIGNS: Stable. He is afebrile. Voiding diary reviewed demonstrating that he is voiding in increments of 150 to 450 mL, CIC, largest amount 434, 350 over the last 24 hours. Continues to be dialyzed three times a week. ABDOMEN: Soft, nontender, and nondistended. PERTINENT LABS: Today, BUN is 35 and creatinine 2.7. Urine culture is negative. IMPRESSION AND PLAN: 1. Mr. Otero is a 27-year-old male with history of polysubstance abuse. 2. Acute renal failure, multifactorial, rhabdomyolysis, unclear regarding previous substance abuse including inhalants, currently on dialysis TTS, followed by Dr. Laughlin. 3. History of left hydronephrosis to the left, large left ureteral calculi, 1 cm status post ureteroscopy, laser lithotripsy, basket extraction, and stent exchange. 4. Urinary retention on Flomax b.i.d., on CIC p.r.n. for postvoid residual greater than 300 mL. I do not expect the patient to be discharged over the weekend as he requires dispo outpatient hemodialysis. I did discuss with Nephrology and primary service that I would prefer his ureteral stent to be removed on this admission as he is high risk for noncompliance to follow up ureteral stent removal/ As such, he is scheduled for cysto stent pull next Friday. Please do not discharge the patient without notifying for disposition regarding his ureteral stent. Dr. Hsu covering me this weekend for prn issues. Job ID: [id number] [facility]
[2018-11-20] MEDS: Ferrous Sulfate 325 MG TAB PO SCH (08:52)
[2018-11-20] MEDS: NIFEdipine XL 60 MG TAB PO SCH (08:52)
[2018-11-20] MEDS: Sevelamer Carbonate 800 MG TAB PO SCH ×2 (08:52→11:29)
[2018-11-20] MEDS: Magnesium Oxide 400 MG TAB PO SCH (08:52)
[2018-11-20] MEDS: Tamsulosin HCl 0.4 MG CAP PO SCH (08:53)
[2018-11-20] MEDS ORDERED: Heparin 5,000 UNITS/ML VIAL SC SCH (09:00)
--- NOTE | 2018-11-20 10:45 | PDOC.FM ---
- Subjective Subjective: Tachycardic overnight. No complaints this morning. On heparin BID for DVT prophylaxis. Afebrile. Had dialysis yesterday. - Objective MAR Reviewed: Yes Vital Signs & Weight: Vital Signs (12 hours) Temp Pulse Resp BP BP Pulse Ox 11/20/18 08:52 102 H 11/20/18 07:15 98.3 F 102 H 17 149/104 H 93 L 11/20/18 04:00 98.6 F 106 H 20 149/104 H 94 L 11/20/18 00:00 97.8 F 102 H 20 145/99 H 95 Weight Admit Weight 81.284 kg Weight 85.82 kg Most Recent Monitor Data Heart Rate from ECG 87 NIBP 157/99 NIBP BP-Mean 118 Respiration from ECG 16 SpO2 95 I&O: 11/19/18 11/20/18 11/21/18 06:59 06:59 06:59 Intake Total 4802 1405 Output Total 6295 5687 Balance -5749 -8142 Result Diagrams: 11/19/18 06:23 11/20/18 07:03 Phys Exam - Physical Examination Constitutional: NAD HEENT: PERRLA, moist MMs Respiratory: no wheezing, no rales, clear to auscultation bilateral Cardiovascular: RRR, no significant murmur Gastrointestinal: soft, non-tender, no distention Musculoskeletal: no edema, pulses present Neurological: non-focal, normal sensation Psychiatric: normal affect, A&O x 3 Skin: no rash, normal turgor Dx/Plan (1) Acute renal failure (ARF) Status: Acute (2) AMAYA (acute kidney injury) Code(s): N17.9 - ACUTE KIDNEY FAILURE, UNSPECIFIED Status: Acute (3) Metabolic acidosis, increased anion gap Code(s): E87.2 - ACIDOSIS Status: Resolved (4) Hyponatremia Code(s): E87.1 - HYPO-OSMOLALITY AND HYPONATREMIA Status: Resolved (5) Rhabdomyolysis Code(s): M62.82 - RHABDOMYOLYSIS Status: Acute (6) Transaminitis Code(s): R74.0 - NONSPEC ELEV OF LEVELS OF TRANSAMNS & LACTIC ACID DEHYDRGNSE Status: Acute (7) Elevated TSH Code(s): R79.89 - OTHER SPECIFIED ABNORMAL FINDINGS OF BLOOD CHEMISTRY Status : Acute (8) Elevated brain natriuretic peptide (BNP) level Code(s): R79.89 - OTHER SPECIFIED ABNORMAL FINDINGS OF BLOOD CHEMISTRY Status : Acute (9) Elevated lipase Code(s): R74.8 - ABNORMAL LEVELS OF OTHER SERUM ENZYMES Status: Acute (10) Acute tubular necrosis Code(s): N17.0 - ACUTE KIDNEY FAILURE WITH TUBULAR NECROSIS Status: Suspected (11) Soft tissue mass Code(s): M79.9 - SOFT TISSUE DISORDER, UNSPECIFIED Status: Acute - Plan Plan: 27 yo gentleman who presented with diffuse pain admitted for AMAYA/ARF, rhabdo, hyponatremia, and transaminitis. Hosp day: 9 AMAYA on CKD --suspected ATN from rhabdomyolysis --negative workup for GN --Considered drug induced nephropathy as pt reports sniffing paint thinner ( tenaco) daily; spoke with poison control who stated that inhaled substances such as this are not well absorbed and likely wouldn't be causing his renal failure, however he is at risk for ventricular tachycardia --Nephro on board: creatinine improved --LR dc'd --dialysis T,R,S --pt does not have insurance and is worried about paying for dialysis. Will consult financial assistance and CM. Soft tissue mass- -not present on prior ct -multiple nodular densities seen on CT -biopsy suggestive of inflammation Hypomangesemia -Continue PO Mg Left ureteral stone- -moderately obstructing -s/p lithotrypsy -mariee pulled -plan to remove stent next Friday. 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 - Echo showed 55-60% EF with mild MR, mild TR MRSE- -1/2 blood cx -contaminant elevated PT/PTT - platelets wnl, monitor for DIC - no anticoag ppx for DVT elevated lipase, resolved - likely 2/2 to poor perfusion/reactive - no indication of pancreatitis AG Metabolic acidosis, resolved hyponatremia, resolved Abdominal distention with nausea, resolved Rhabdomyolisis, resolved Leukoctyosis with hematuria, resolved -WBC 11 -Afebrile, urine cx shows no growth at 48 hours lines: left IJ dialysis cath removed 11/18, right IJ CVC both placed 11/09; left peripheral IV placed 11/18 code: full ppx: restarted heparin bid dispo: pending urology recs and financial assistance for dialysis as patient does not have insurance
--- NOTE | 2018-11-20 11:11 | PRG ---
DATE OF SERVICE: 11/20/2018 SUBJECTIVE: Mr. Otero is resting quietly in bed, in no distress. He is due for dialysis again in the morning. Urology has asked that we keep the patient until Friday, so that they can remove the stent. They are concerned that if discharged, he will not follow up. Job ID: [id number]
[2018-11-20 11:32] VITALS: BP 142/90; TEMP 99.1
--- NOTE | 2018-11-20 15:05 | PRG ---
DATE OF SERVICE: 11/20/2018 SUBJECTIVE: Mr. Otero has demanded his hemodialysis catheter to be removed. He demanded his Shea catheter and ureteral stent to be removed. He has had an obstruction and Dr. Holt has removed the stent upon the patient's insistence, even though we have explained to the patient he is in need of leaving this. We have explained to him that he is in need of leaving his hemodialysis catheter as he still demands dialysis. Without dialysis, he could become uremic, comatose, and . The patient, however, demands to have his hemodialysis catheter removed, thus I will remove it. I have discussed with the patient and the family, but he is insistent. Job ID: [id number]
--- NOTE | 2018-11-20 16:03 | OP ---
DATE OF PROCEDURE: 11/20/2018 PREOPERATIVE DIAGNOSES: Acute renal failure, on dialysis but the patient is threatening AMA discharge and demands his catheter removed. He has demanded that his ureteral stent followed to be removed. Dr. Holt has removed these. POSTOPERATIVE DIAGNOSES: Acute renal failure, on dialysis but the patient is threatening AMA discharge and demands his catheter removed. He has demanded that his ureteral stent followed to be removed. Dr. Holt has removed these. PROCEDURE PERFORMED: Removal of a hemodialysis catheter. ANESTHESIA: None. DESCRIPTION OF PROCEDURE: The patient was at bedside in his room after full discussion, explanation about the risks of not having dialysis, the dialysis catheter was removed on the patient's insistence with the patient understanding that he could and become uremic from this. He understands this is a threat to his life, however, he insisted on removal. Suture removed, catheter and cuff removed intact. Pressure held with hemostatic. The patient tolerated the procedure well. Job ID: [id number]
--- NOTE | 2018-11-20 19:19 | OP ---
DATE OF PROCEDURE: 11/20/2018 PREOPERATIVE DIAGNOSES: 1. History of renal failure, prerenal renal with history of rhabdomyolysis. 2. History of left 10 mm proximal ureteral calculi with hydronephrosis, status post ureteroscopy laser lithotripsy stent exchange 3. Persistent renal failure on hemodialysis. 4. Medical noncompliance. 5. The patient leaving against medical advice, attempting to pull out his dialysis catheter. 6. History of incomplete void on CIC. POSTOPERATIVE DIAGNOSES: 1. History of renal failure, prerenal renal with history of rhabdomyolysis. 2. History of left 10 mm proximal ureteral calculi with hydronephrosis. 3. Persistent renal failure on hemodialysis. 4. Medical noncompliance. 5. The patient leaving against medical advice, attempting to pull out his dialysis catheter. 6. History of incomplete void on CIC. PROCEDURES PERFORMED: Cystoscopy and left stent pull. ANESTHESIA: Local. COMPLICATIONS: None. DISPOSITION: The patient leaving against medical advice. INDICATIONS FOR THE PROCEDURE: Mr. Otero is a 27-year-old male, who presented with kidney failure with uremia. The patient has been receiving dialysis with no significant return of renal function thus yet. The patient underwent ureteroscopy, laser lithotripsy of large proximal ureteral stone, which was uneventful. Stone clearance was noted. Due to incomplete void, I did not leave a stent on Dangler. He is managed with CICs as he declined indwelling urethral Shea catheter and threatened to pull out the catheter himself. I informed the patient regarding importance of followup and removal of ureteral stent as they can encrust and cause further stone nidus. I was called by nursing staff as the patient is dressed, wanting to leave, attempting to pull out his dialysis catheter. As such, I was paged to remove his ureteral stent. This patient is leaving against medical advice and will not follow up with me for stent removal. Patient and family at bedside were fully consulted regarding his decision of leaving AGAINST MEDICAL ADVICE, morbidity mortality associated with leaving prematurely from the hospital reviewed. Consequences of leaving AGAINST MEDICAL ADVICE included but not limited to: Morbidity mortality, sepsis, infection, bladder renal ureteral injury were reviewed with him in detail. Patient adamant that he wants to leave. As such stent removal to be performed, this patient will not follow up subsequently. DESCRIPTION OF PROCEDURE: The patient was prepped in a usual surgical sterile fashion. A viscous lidocaine was injected per urethra. Using a flexible cystoscope and a flexible grasper, we removed the ureteral stent uneventfully. He tolerated the procedure well. Subsequently, I did empty his bladder complete. Subsequently, Dr. Mares was paged to remove his dialysis catheter as he was attempting to pull out. The patient and family at bedside were extensively consulted regarding likely morbidity and mortality as he is leaving against medical advice. He verbalizes understanding and is leaving against medical advice. Job ID: [id number] MTDD
--- NOTE | 2018-11-21 12:40 | EKG ---
Test Reason : Blood Pressure : / mmHG Vent. Rate : 091 BPM Atrial Rate : 091 BPM P-R Int : 126 ms QRS Dur : 098 ms QT Int : 386 ms P-R-T Axes : 020 067 019 degrees QTc Int : 474 ms Normal sinus rhythm with sinus arrhythmia Normal ECG Confirmed by LOREN JORDAN, SOLEDAD ([id number]), writer editor YA ANDERS ([id number]) on 11/21/2018 12:39:43 PM Referred By: Confirmed By:SOLEDAD PIMENTEL MD
[2018-11-23 16:11] LABS: Folate,Hemolysate 208.5 ng/mL (Not Estab.); Hematocrit 25.9 % (37.5-51.0); RBC Folate Test Component 805 ng/mL (>498)
[2018-11-23 16:11] LABS: Ammonium Acid Urate 80 % (.); CA Phosphate 15 % (.); Color Red (.); Comment Comment: (.); Comment Note: (.); Stone Weight 71.4 mg (.)
== END 2018-11-20 14:31 | disposition left against medical advice (07) | DRG 660 ==
LOC: ERS 16:23 → IMCU/EMU 21:48 → 2NO 11-12 22:28 → T4-A 11-14 15:58
PROVIDERS: ADMIT Family Medicine; ATTEND Family Medicine
PROC: 0JH63XZ Insertion of Tunneled Vascular Access Device into Chest Subcutaneous Tissue and Fascia, Percutaneous Approach (ICD-10-PCS; principal; 2018-11-09)
PROC: 02H633Z Insertion of Infusion Device into Right Atrium, Percutaneous Approach (ICD-10-PCS; 2018-11-09)
PROC: 5A1D70Z Performance of Urinary Filtration, Intermittent, Less than 6 Hours Per Day (ICD-10-PCS; 2018-11-09)
PROC: 0T778DZ Dilation of Left Ureter with Intraluminal Device, Via Natural or Artificial Opening Endoscopic (ICD-10-PCS; 2018-11-11)
PROC: 0WB83ZX Excision of Chest Wall, Percutaneous Approach, Diagnostic (ICD-10-PCS; 2018-11-17)
PROC: 0TC18ZZ Extirpation of Matter from Left Kidney, Via Natural or Artificial Opening Endoscopic (ICD-10-PCS; 2018-11-18)
PROC: 0TC78ZZ Extirpation of Matter from Left Ureter, Via Natural or Artificial Opening Endoscopic (ICD-10-PCS; 2018-11-18)
PROC: 0TP98DZ Removal of Intraluminal Device from Ureter, Via Natural or Artificial Opening Endoscopic (ICD-10-PCS; 2018-11-20)
PROC: 0JPTXXZ Removal of Tunneled Vascular Access Device from Trunk Subcutaneous Tissue and Fascia, External Approach (ICD-10-PCS; 2018-11-20)
DX: N17.0 Acute kidney failure with tubular necrosis (principal); E87.1 Hypo-osmolality and hyponatremia; E87.2 Acidosis; M62.82 Rhabdomyolysis; R65.10 Systemic inflammatory response syndrome (SIRS) of non-infectious origin without acute organ dysfunction; I42.7 Cardiomyopathy due to drug and external agent; Z53.21 Procedure and treatment not carried out due to patient leaving prior to being seen by health care provider; I12.9 Hypertensive chronic kidney disease with stage 1 through stage 4 chronic kidney disease, or unspecified chronic kidney disease; N18.9 Chronic kidney disease, unspecified; N13.2 Hydronephrosis with renal and ureteral calculous obstruction; E03.9 Hypothyroidism, unspecified; R74.0 Nonspecific elevation of levels of transaminase and lactic acid dehydrogenase [LDH]; R74.8 Abnormal levels of other serum enzymes; D63.1 Anemia in chronic kidney disease; R79.89 Other specified abnormal findings of blood chemistry; R22.2 Localized swelling, mass and lump, trunk; E83.42 Hypomagnesemia; E87.6 Hypokalemia; R06.6 Hiccough; M79.9 Soft tissue disorder, unspecified; R33.9 Retention of urine, unspecified; X58.XXXA Exposure to other specified factors, initial encounter; Y92.410 Unspecified street and highway as the place of occurrence of the external cause
CPT/HCPCS: 10005; 36415; 71045; 71250; 74018; 74177; 74420; 76000; 80048; 80053; 80202; 80306; 80307; 81001; 81015; 82010; 82365; 82550; 82570; 82607; 82728; 82747; 83520; 83540; 83550; 83605; 83690; 83735; 83880; 83970; 84100; 84134; 84145; 84300; 84439; 84443; 85014; 85025; 85610; 85730; 86038; 86225; 86256; 86706; 86803; 86850; 86900; 86901; 87040; 87086; 87149; 87338; 87340; 87389; 87521; 88300; 88305; 90471; 90686; 90715; 90935; 93005; 93306; 93970; 96361; 96365; 96366; 96375; 96376; C1752; C1758; C1769; G0008; G0257; G0365; J0131; J0360; J0670; J1100; J1644; J2001; J2250; J2270; J2405; J2543; J2704; J3010; J3230; J3370; J3475; J3480; J3490; J7050; J7070; Q9961